=== PATIENT | male | born 1965 | race Caucasian/White ===

== ENCOUNTER 2016-12-30 22:27 | Emergency (ER) | payer BC, OTHER ==
[~2016-12-30] VITALS: Ht 175.3 cm; Wt 82.2 kg
[~2016-12-30 22:27] MED LIST: METO25TA3 PO
[2016-12-30 22:30] VITALS: TEMP 36.8; Ht 175.3 cm; Wt 82.2 kg
[2016-12-30] MEDS ORDERED: METO25TA3 PO (22:46)
[2016-12-30] MEDS ORDERED: FEXO1TAB46 PO (22:46)
[2016-12-30] MEDS ORDERED: MULT-506 PO (22:46)
[2016-12-30] MEDS ORDERED: OMEG10007 PO (22:46)
[2016-12-30] MEDS ORDERED: SODIUM CHLORIDE 0.9% 1000ML 1,000 ML IV ONE (23:00)
[2016-12-30 23:34] LABS: HEMATOCRIT 43.5 % (42-52); MEAN CELL VOLUME 89.1 fL (80-100); MEAN CORPUSCULAR HEMOGLOBIN 30.9 pg (25-34); MEAN CORPUSCULAR HGB CONC 34.7 g/dl (32-36); MEAN PLATELET VOLUME 9.3 fL (7.4-10.4); PLATELET COUNT 262 K/uL (130-400); RED BLOOD COUNT 4.88 M/uL (4.7-6.1); WHITE BLOOD COUNT 10.65 K/uL (4.8-10.8)
[2016-12-30 23:39] LABS: POINT OF CARE TROPONIN I < 0.030 ng/ml (0-0.045)
[2016-12-30 23:55] LABS: BUN/CREATININE RATIO 12.5 (10-20); CALCIUM 9.2 mg/dl (8.5-10.1); CREATININE 1.2 mg/dl (0.60-1.40); POTASSIUM 3.7 mmol/L (3.5-5.1)
[2016-12-31] MEDS ORDERED: OPTIRAY 320 IV PRN
[2016-12-31 00:06] LABS: ALB/GLOB RATIO 0.8 (0.9-2); THYROID STIMULATING HORMONE 3.51 uIu/ml (0.300-4.500)
[2016-12-31 00:25] LABS: LYME DISEASE AB IGG NEG (NEG)
[2016-12-31 00:26] LABS: LYME DISEASE AB IGM NEG (NEG)
[2016-12-31 00:36] LABS: BASOPHIL % 0.9 % (0-2); EOSINOPHIL % 3.6 %; LYMPH ABS # 2.61 K/uL (1.2-3.4); LYMPHOCYTE % 24.5 %; NEUTROPHILS % 29.1 %; VARIANT LYM ABS # 3.88 K/uL; VARIANT LYMPHOCYTE % 36.4 %
[2016-12-31 00:40] LABS: COMPLETE YES
[2016-12-31 01:15] VITALS: BP 138/92; PULSE 94; O2SAT 96
[2016-12-31] MEDS ORDERED: VNTHFA/IN INH (01:40)
[2016-12-31] MEDS ORDERED: HYDR5SYP11 PO (01:40)
[2016-12-31] MEDS ORDERED: DOXY100C PO (01:40)
[2016-12-31] MEDS ORDERED: HYCODAN 60ML BOTTLE HOMEPACK PO ONE (01:45)
--- NOTE | 2016-12-31 04:19 | EMERGENCY ROOM VISIT NOTE ---
History First contact with patient: 22:31 Chief Complaint: COUGH Stated Complaint: NECK/HEAD PAIN, PERSISTENT COUGH, VOMITTING, FEVER Nursing Triage Summary: patient reports cough for a month History of Present Illness The patient is a 51 year old male who presents to the Emergency Room with complaints of intermittent fever and persistent cough off-and-on for the past 3- 4 weeks. The patient considers himself usually healthy and does not take medication on a regular basis. He does not have a history of cardiopulmonary disease. The patient states that at times his cough will cause him anterior chest wall pain as well as posttussive emesis. The patient states that his fever improves with Advil and Tylenol at home. He was having worsening symptoms tonight, prompting his presentation. The patient does not report lightheadedness or dizziness. No dyspnea on exertion or abdominal pain. He has been eating, drinking, using the bathroom is normal. No weight loss or night sweats. He rates his overall discomfort 7/10. Review of Systems More than 10 systems were reviewed and otherwise negative with the exception of history of present illness. Past Medical/Surgical History Hypertension Family History Cancer FH: seizures Hypertension Social History Smoking Status: Never Smoker Marital Status: Housing Status: lives with family Occupation Status: employed Current/Historical Medications Scheduled Albuterol Hfa (Ventolin Hfa), 2 PUFFS INH QID Doxycycline Hyclate (Vibramycin), 100 MG PO BID Fexofenadine Hcl (Gretel), 180 MG PO DAILY Fish Oil ([place]-3), 1 CAP PO DAILY Metoprolol Succ (Toprol Xl) (Toprol-Xl), 25 MG PO DAILY Multivitamin (Multivitamin), 1 TAB PO DAILY Scheduled PRN Hydrocodone W/ Homatropine (Hycodan 5/1.5MG 5 Ml), 5-10 ML PO Q4H PRN for Cough Physical Exam Vital Signs Date Time Temp Pulse Resp B/P (MAP) Pulse Ox O2 Delivery O2 Flow Rate FiO2 12/31/16 01:15 94 18 138/92 96 Room Air 12/30/16 22:30 36.8 90 18 148/99 98 Room Air Pain Rating (0-10): 3.0 Physical Exam VITALS: Vitals are noted on the nurse's note and reviewed by myself. Vital signs stable. GENERAL: Well-developed, well-nourished, white male, who is in no acute distress and resting comfortably. Patient is cooperative with the examination. Dry cough is appreciated. HEAD: Normocephalic atraumatic. EARS: External ear normal. External auditory canals clear, tympanic membranes pearly denney without erythema or effusion bilaterally. EYES: Pupils equal round and reactive to light and accommodation. Conjunctivae without injection, sclerae without icterus. Extraocular movements intact. NOSE: Patent, turbinates without inflammation or discharge. MOUTH: Mucous membranes moist. Tonsils are not enlarged. Pharynx without erythema, blood, or exudate. Uvula midline. Airway patent. NECK: Supple without nuchal rigidity. No lymphadenopathy. No thyromegaly. Cervical spine is nontender. HEART: Regular rate and rhythm without murmurs gallops or rubs. LUNGS: Clear to auscultation bilaterally without wheezes, rales or rhonchi. No retractions or accessory muscle use. ABDOMEN: Positive normal bowel sounds x 4. Soft, nontender, without masses or organomegaly. No guarding or rebound tenderness. MUSCULOSKELETAL: No muscle atrophy, erythema, or edema noted. Full range of motion without joint tenderness in all extremities. NEURO: Patient was alert and oriented to person place and time. CN II through XII grossly intact. Medical Decision & Procedures ER Provider Diagnostic Interpretation: Preliminary Findings Only See Final Report For Complete Findings CTA CHEST: No evidence of PE. Lungs are clear. No pleural effusions. No adenopathy. Heart size is normal. Aorta is unremarkable. Laboratory Results 12/30/16 23:10 Red Blood Count 4.88, Mean Corpuscular Volume 89.1, Mean Corpuscular Hemoglobin 30.9, Mean Corpuscular Hemoglobin Concent 34.7, Mean Platelet Volume 9.3 12/30/16 23:10 Test 12/30/16 23:10 12/30/16 23:16 12/30/16 23:17 12/30/16 23:20 White Blood Count 10.65 K/uL (4.8-10.8) Red Blood Count 4.88 M/uL (4.7-6.1) Hemoglobin 15.1 g/dL (14.0-18.0) Hematocrit 43.5 % (42-52) Mean Corpuscular Volume 89.1 fL (80-100) Mean Corpuscular Hemoglobin 30.9 pg (25-34) Mean Corpuscular Hemoglobin Concent 34.7 g/dl (32-36) Platelet Count 262 K/uL (130-400) Mean Platelet Volume 9.3 fL (7.4-10.4) RDW Standard Deviation 45.4 fL (36.4-46.3) RDW Coefficient of Variation 13.9 % (11.5-14.5) Neutrophils % (Manual) 29.1 % Lymphocytes % (Manual) 24.5 % Variant Lymphocytes % (manual) 36.4 % Monocytes % (Manual) 5.5 % Eosinophils % (Manual) 3.6 % Basophils % (Manual) 0.9 % (0-2) Neutrophils # (Manual) 3.10 K/uL (1.4-6.5) Total Absolute Neutrophils 3.10 K/uL (1.4-6.5) Lymphocytes # (Manual) 2.61 K/uL (1.2-3.4) Absolute Variant Lymphocytes 3.88 K/uL Total Absolute Lymphocytes 6.49 K/uL (1.2-3.4) Monocytes # (Manual) 0.59 K/uL (0.11-0.59) Eosinophils # (Manual) 0.38 K/uL (0-0.5) Basophils # (Manual) 0.10 K/uL (0-0.2) Red Blood Cell Morphology Unremarkable Anion Gap 7.0 mmol/L (3-11) Est Creatinine Clear Calc Drug Dose 73.7 ml/min Estimated GFR () 81.2 Estimated GFR (Non- 70.1 BUN/Creatinine Ratio 12.5 (10-20) Calcium Level 9.2 mg/dl (8.5-10.1) Total Bilirubin 0.4 mg/dl (0.2-1) Aspartate Amino Transf (AST/SGOT) 64 U/L (15-37) Alanine Aminotransferase (ALT/SGPT) 96 U/L (12-78) Alkaline Phosphatase 208 U/L (45-117) Pro-B-Type Natriuretic Peptide 50 pg/ml (0-900) Total Protein 7.9 gm/dl (6.4-8.2) Albumin 3.4 gm/dl (3.4-5.0) Globulin 4.5 gm/dl (2.5-4.0) Albumin/Globulin Ratio 0.8 (0.9-2) Thyroid Stimulating Hormone (TSH) 3.510 uIu/ml (0.300-4.500) Lyme Disease IgG Antibody NEG (NEG) Lyme Disease IgM Antibody NEG (NEG) Monoscreen NEG (NEG) Bedside Lactic Acid Venous 0.77 mmol/L (0.90-1.70) Influenza Type A Antigen Neg for Influ A (NEG) Influenza Type B Antigen Neg for Influ B (NEG) Bedside D-Dimer > 450 ng/mlFEU (0-450) Bedside Troponin I < 0.030 ng/ml (0-0.045) Medications Administered Medications (Trade) Dose Ordered Sig/Binu Route Start Time Stop Time Status Last Admin Dose Admin Sodium Chloride 1,000 ml @ 999 mls/hr Q1H1M ONCE IV 12/30/16 23:00 12/31/16 00:00 DC 12/30/16 23:56 999 MLS/HR Hydrocodone Bit/ Homatropine Methylb (Hycodan Elix Homepack 5/1.5MG/ 5ML) 1 homepack UD ONCE PO 12/31/16 01:45 12/31/16 01:46 DC 12/31/16 01:50 1 HOMEPACK ECG Change: Normal sinus rhythm @81bpm Normal ECG When compared with ECG of 15-MAY-2008 09:39, No significant change was found ED Course Physical exam and history were performed. Nursing notes, EMR, and Medication List were personally reviewed. Patient appears to have vague history of fevers and chills with persistent cough for the past 3-4 weeks. 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 The patient is considered reliable and symptoms are somewhat concerning. IV access was established and labs were obtained. The patient was hydrated with normal saline. EKG was normal sinus rhythm at 81 bpm without evidence of ischemia or ectopy. X-ray was obtained. The patient was placed on the quality assurance monitor body. The patient was reevaluated multiple times with his stay. His blood work is as above and was reviewed. He does not have a significant elevated white blood cell count or gross anemia, bandemia, or significant electrolyte imbalance. Lipase was nondiagnostic. Troponin 1 is negative. His d-dimer was elevated, and CT angiogram was performed. CT angiogram did not show evidence of acute findings. Chest x-ray was also without acute findings. The patient's LFTs are slightly elevated of unknown etiology. He certainly does not have abdominal pain on examination, nor does he drink alcohol. Monospot was negative. Lyme was negative. On reevaluation the patient certainly does not appear toxic. The evaluation was discussed at length with the patient and the patient's . He does appear well and comfortable with discharge home. His symptoms certainly could be explained by an upper respiratory infection, and I will provide him a course of Doxycycline. Regarding his persistent cough and will give him a short course of Hycodin as well as an albuterol inhaler. They do recommend the patient follow with his PCP in the next few days for a recheck of his condition. He was certainly invited back to the emergency department with a new , worsening, or concerning symptoms. The chart was completed utilizing [employer] Speech Voice Recognition Software. Grammatical errors, random word insertions, pronoun errors, and incomplete sentences are an occasional consequence of this system due to software limitations, ambient noise, and hardware issues. Any formal questions or concerns about the content, text, or information contained within the body of this dictation should be directly addressed to the provider for clarification. . Medical Decision Differential diagnosis: Etiologies such as infections, reactive airway disease, pneumonia, pneumothorax , COPD, CHF, cardiac ischemia, pulmonary embolism, musculoskeletal, gastrointestinal, as well as others were entertained. Blood Pressure Screening Blood pressure disposition: Referred to PCP Impression Primary Impression: Upper respiratory infection Additional Impression: Cough Departure Information Dispostion Home / Self-Care Condition GOOD Prescriptions Albuterol Hfa (VENTOLIN HFA) 200 Puffs/26163 Mcg Aers 2 PUFFS INH QID for 5 Days, #1 INHALER Prov: Adilson Prieto PA-C 12/31/16 Hydrocodone W/ Homatropine (HYCODAN 5/1.5MG 5 ML) 1 Syp Syp 5-10 ML PO Q4H Y for Cough, #200 ML Prov: Adilson Prieto PA-C 12/31/16 Doxycycline Hyclate (VIBRAMYCIN) 100 Mg Cap 100 MG PO BID for 10 Days, #20 CAP Prov: Adilson Prieto PA-C 12/31/16 Referrals Edward Madera III, CRNP (PCP) Forms HOME CARE DOCUMENTATION FORM, Work Instructions, IMPORTANT VISIT INFORMATION Patient Instructions My [facility] Additional Instructions You were seen and evaluated today on an emergency basis only. This is not a substitute for, or an effort to provide, complete comprehensive medical care. It is not possible to recognize and treat all injuries or illnesses in a single emergency department visit. For this reason it is recommended that you followup with your primary care physician next week for recheck of your symptoms. For baseline pain relief you may alternate ibuprofen and acetaminophen every 4 hours for pain control. Take 600 mg ibuprofen (Advil) and then 4 hours later take 1000 mg acetaminophen (Tylenol). Do not take more than 3000 mg acetaminophen in a single day. Doxycycline twice a day for 10 days. Avoid exposure to the sun/UV light while on this medication or use frequent application of SPF 50 or higher due to increased sensitivity to UV rays and high risk for severe browne. Use your albuterol inhaler 2 puffs every 4-6 hours as needed for coughing. You may also use Hycodan 5 mL's every 4-6 hours as needed for cough. This is a narcotic. Do not drink or drive on this medication. You are welcome to return to the emergency department anytime with new, worsening, or concerning symptoms. Problem Qualifiers
--- NOTE | 2016-12-31 07:02 | DIAGNOSTIC IMAGING REPORT ---
CHEST 2 VIEWS ROUTINE CLINICAL HISTORY: Cough. Fever. COMPARISON STUDY: Chest radiograph May 15, 2008. FINDINGS: Lung volumes are normal. There is no pneumothorax or pleural effusion. No consolidation is identified. Pulmonary vascularity is normal. Cardiomediastinal silhouette is stable. IMPRESSION: No acute cardiopulmonary findings. Electronically signed by: Lyle Escobar M.D. 12/31/2016 7:01 AM Dictated Date/Time: 12/31/2016 7:00 AM
--- NOTE | 2016-12-31 07:42 | DIAGNOSTIC IMAGING REPORT ---
(CHEST FOR PE) ANGIO WITH CT DOSE: 332.10 mGy.cm HISTORY: Chest pain dyspnea TECHNIQUE: Multiaxial CT images of the chest were performed following the intravenous administration of contrast to evaluate the pulmonary arteries. Maximal intensity projection images were also obtained. A dose lowering technique was utilized adhering to the principles of ALARA. COMPARISON STUDY: None. FINDINGS: Thoracic aorta is normal in course and caliber. The right hemithoracic pulmonary vasculature enhances uniformly. Study is somewhat compromised due to respiratory artifact. Probable filling defect left perihilar region involving the lingular branch of the left upper lobe. No evidence for main or central pulmonary embolus. Lungs are generally clear. Slight interstitial prominence. IMPRESSION: Study is positive for a small pulmonary embolus proximal aspect left upper lobe/lingular pulmonary arterial artery . This is best seen transaxial image 72 of 110 and image 178 of 273. This correction was phoned to the emergency room The above report was generated using voice recognition software. It may contain grammatical, syntax or spelling errors. Electronically signed by: Daquan Lyons M.D. 12/31/2016 7:40 AM Dictated Date/Time: 12/31/2016 7:25 AM
[2016-12-31] MEDS ORDERED: RIVA1TAB7 PO (10:27)
== END 2016-12-31 01:50 | disposition home or self-care (01) ==
LOC: C.EDB 22:29 → C.EDC 12-31 01:50
DX: J06.9 Acute upper respiratory infection, unspecified (principal); R05 Cough; I10 Essential (primary) hypertension; Z82.0 Family history of epilepsy and other diseases of the nervous system; Z82.49 Family history of ischemic heart disease and other diseases of the circulatory system

== ENCOUNTER 2016-12-31 09:29 | Emergency (ER) | payer BC ==
[~2016-12-31] VITALS: Ht 175.3 cm; Wt 82.0 kg
[~2016-12-31 09:29] MED LIST changes: +DOXY100C PO; +FEXO1TAB46 PO; +HYDR5SYP11 PO; +MULT-506 PO; +OMEG10007 PO; +VNTHFA/IN INH
[2016-12-31 09:34] VITALS: TEMP 37.1; Ht 175.3 cm; Wt 82.0 kg
--- NOTE | 2016-12-31 09:57 | EMERGENCY ROOM VISIT NOTE ---
History Report prepared by Marilyn: Carri Nascimento Under the Supervision of: Dr. Jose Heller M.D. First contact with patient: 09:40 Chief Complaint: RESPIRATORY PROBLEMS Stated Complaint: CALLED BACK TO ER - FOUND PE Nursing Triage Summary: Pt seen here during the night, called and told to return for PE in left lung. Pt denies sob. "Chest pain from coughing." Denies pain in legs. Denies hx of PE. 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 Positive fevers, cough, and chest pain intermittently that worsens with coughing. Negative shortness of breath, and pain or swelling in legs. Patient is a non-smoker. He has been taking ibuprofen and Tylenol at home for his symptoms. The patient was evaluated in the ED yesterday for these symptoms. He had a chest CT, CXR, and blood work done. He was discharged home. The patient was called back to the ED this morning after the radiologist read his CT and found a small PE in the left lung. He denies any personal or family history of blood clots. The patient rates his current pain as a 3/10 in severity. 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 A total of ten systems were reviewed and were otherwise negative. Past Medical & Surgical Surgical Problems: (1) Hx of tonsillectomy Family History Cancer FH: seizures Hypertension Social History Smoking Status: Never Smoker Marital Status: Housing Status: lives with family Occupation Status: employed Current/Historical Medications Scheduled Albuterol Hfa (Ventolin Hfa), 2 PUFFS INH QID Doxycycline Hyclate (Vibramycin), 100 MG PO BID Fexofenadine Hcl (Gretel), 180 MG PO DAILY Fish Oil ([place]-3), 1 CAP PO DAILY Metoprolol Succ (Toprol Xl) (Toprol-Xl), 25 MG PO DAILY Multivitamin (Multivitamin), 1 TAB PO DAILY Rivaroxaban (Xarelto Starter Pack 15 & 20 mg), 1 BOX PO QD Scheduled PRN Hydrocodone W/ Homatropine (Hycodan 5/1.5MG 5 Ml), 5-10 ML PO Q4H PRN for Cough Allergies Coded Allergies: No Known Allergies (Verified , 12/30/16) Physical Exam Vital Signs Date Time Temp Pulse Resp B/P (MAP) Pulse Ox O2 Delivery O2 Flow Rate FiO2 12/31/16 10:15 82 18 122/76 98 Room Air 12/31/16 09:34 96 Room Air 12/31/16 09:34 37.1 90 18 113/76 94 Room Air Physical Exam GENERAL: Awake, alert, well-appearing, NAD HENT: Normocephalic, atraumatic. EYES: Normal conjunctiva. Sclera non-icteric. NECK: Supple. No nuchal rigidity. FROM. RESPIRATORY: CTAB, no rhonchi, wheezing, crackles CARDIAC: RRR, no MRG ABDOMEN: Soft, NTND, BS+ MSK: No chest wall TTP, no LE edema NEURO: GCS 15, CN 2-12 intact, moves all 4s on command SKIN: No rash or jaundice noted. Medical Decision & Procedures ECG Indication: other (PE) Rate (beats per minute): 75 Rhythm: normal sinus Findings: T-wave inversion (lead 3), other (normal TN, QRS, QTC; no other contiguous changes; no other STS or TWI) ED Course 0940: The patient was evaluated in room A9B. A complete history and physical exam was performed. 1025: I reassessed the patient at this time. He is feeling better and resting comfortably. I discussed the results and treatment plan with the patient and his . I answered all pertaining questions that they had. They expressed understanding and verbalized agreement. The patient will be discharged home. Medical Decision Differential diagnoses includes PE, arrhythmia, pleurisy, costochondritis, bronchitis. 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 He has a PESI of 60 - low risk. A repeat EKG was completed which did not show any tachycardia. He did have an isolated T-wave inversion in lead 3 but no continuous changes. Patient received a walk test around the department and his vital signs were still stable. No tachycardia or hypoxia or tachypnea. I did consider other possible causes of his pain that given the CT read of PE is less likely. Patient was feeling well. I gave the patient specific return, follow-up, and discharge instructions. Patient was treated receives a relatives and outpatient follow- up with his PCP. Patient agreed with plan of care was discharged home. Medication Reconcilliation Current Medication List: was personally reviewed by me Blood Pressure Screening Patient's blood pressure: Normal blood pressure Impression Primary Impression: Pulmonary embolism Additional Impression: Pleuritic chest pain Scribe Attestation The scribe's documentation has been prepared under my direction and personally reviewed by me in its entirety. I confirm that the note above accurately reflects all work, treatment, procedures, and medical decision making performed by me. Departure Information Dispostion Home / Self-Care Prescriptions Rivaroxaban (Xarelto Starter Pack 15 & 20 mg) 1 Tab Tab 1 BOX PO QD for pulmonary embolism, #30 BOX 0 Refills Prov: Jose Heller M.D. 12/31/16 Referrals Edward Madera III, CRNP (PCP) Forms HOME CARE DOCUMENTATION FORM, IMPORTANT VISIT INFORMATION, WORK / SCHOOL INSTRUCTIONS Patient Instructions Embolism Pulmonary Dc, My [facility], Rivaroxaban oral tablets Additional Instructions Please follow up with her primary care physician. Please return to the emergency department if worsening or recurrent symptoms. WARNINGS AND PRECAUTIONS Increased Risk of Thrombotic Events After Premature Discontinuation: Premature discontinuation of any oral anticoagulant, including XARELTO, in the absence of adequate alternative anticoagulation increases the risk of thrombotic events. An increased rate of stroke was observed during the transition from XARELTO to warfarin in clinical trials in atrial fibrillation patients. If XARELTO is discontinued for a reason other than pathological bleeding or completion of a course of therapy, consider coverage with another anticoagulant.Risk of Bleeding: XARELTO increases the risk of bleeding and can cause serious or fatal bleeding. Promptly evaluate any signs or symptoms of blood loss and consider the need for blood replacement. Discontinue XARELTO in patients with active pathological hemorrhage. A specific antidote for rivaroxaban is not available. Because of high plasma protein binding, rivaroxaban is not expected to be dialyzable. Concomitant use of other drugs that impair hemostasis increases the risk of bleeding. These include aspirin, P2Y12 platelet inhibitors, other antithrombotic agents, fibrinolytic therapy, NSAIDs, selective serotonin reuptake inhibitors (SSRIs), and serotonin norepinephrine reuptake inhibitors (SNRIs). Work Instructions Return To Work: 2 days Specific Date: 01/02/17 Problem Qualifiers Primary Impression: Pulmonary embolism Pulmonary embolism type: other Chronicity: acute Acute cor pulmonale presence: without acute cor pulmonale Qualified Codes: I26.99 - Other pulmonary embolism without acute cor pulmonale
[2016-12-31 10:15] VITALS: BP 122/76; PULSE 82; O2SAT 98
[2016-12-31] MEDS ORDERED: RIVA1TAB7 PO (10:27)
== END 2016-12-31 10:40 | disposition home or self-care (01) ==
LOC: C.EDB 09:30 → C.EDA 10:40
DX: I26.99 Other pulmonary embolism without acute cor pulmonale (principal); Z80.9 Family history of malignant neoplasm, unspecified; Z82.0 Family history of epilepsy and other diseases of the nervous system; Z82.49 Family history of ischemic heart disease and other diseases of the circulatory system; Z79.899 Other long term (current) drug therapy

== ENCOUNTER → 2017-01-08 | Outpatient (CLI) | payer BC ==
[~2017-01-08] MED LIST changes: +RIVA1TAB7 PO; -VNTHFA/IN INH
--- NOTE | 2017-01-08 14:11 | DIAGNOSTIC IMAGING REPORT ---
ULTRASOUND BILATERAL LOWER EXTREMITY VENOUS CLINICAL HISTORY: Pulmonary embolus. COMPARISON STUDY: Left lower extremity venous ultrasound dated 03/07/2015. TECHNIQUE: Real-time, grayscale, and color Doppler sonography of the deep veins of the right and left lower extremity was performed from the inguinal crease to the calf. Compression and augmentation were utilized. FINDINGS: There is no sonographic evidence of deep venous thrombosis identified in the right or left lower extremity. The common femoral, superficial femoral, and popliteal veins are patent and normally compressible bilaterally. The greater saphenous vein and the profunda femoris vein at the junction with the common femoral vein are clear in both legs. The visualized calf veins are patent bilaterally. IMPRESSION: There is no sonographic evidence of deep venous thrombosis identified in the right or left lower extremity. Electronically signed by: Christopher Duran M.D. 01/08/2017 2:09 PM Dictated Date/Time: 01/08/2017 2:08 PM
== END | disposition home or self-care (01) ==
LOC: C.ULTR 13:37
PROVIDERS: ATTEND Nurse Practitioner Family
DX: I26.99 Other pulmonary embolism without acute cor pulmonale (principal)

== ENCOUNTER 2017-05-22 00:26 | Emergency (ER) | payer BC ==
[~2017-05-22] VITALS: Ht 172.7 cm; Wt 83.6 kg
[~2017-05-22 00:26] MED LIST changes: -DOXY100C PO; -HYDR5SYP11 PO
[2017-05-22 00:30] VITALS: TEMP 36.7; Ht 172.7 cm; Wt 83.6 kg
[2017-05-22] MEDS ORDERED: ONDANSETRON INJ 2 MG/ML 2 ML VIAL IV STA (00:33)
[2017-05-22] MEDS ORDERED: SODIUM CHLORIDE 0.9% 1000ML 1,000 ML IV STA (00:33)
--- NOTE | 2017-05-22 00:42 | EMERGENCY ROOM VISIT NOTE ---
History Report prepared by Marilyn: Neeru Garcia Under the Supervision of: Dr. John Estrada D.O. First contact with patient: 00:33 Chief Complaint: FLANK PAIN Stated Complaint: PAIN IN SIDE,PINK URINE History of Present Illness The patient is a 52 year old male who presents to the Emergency Room with complaints of worsening right flank pain starting last night. The patient states that it became worse tonight. He states that he has not taken anything for his pain. He notes that movement makes it worse and sitting still makes it better. The patient complains of fatigue from difficulty sleeping last night. He notes that his urine is slightly pink. The patient denies fever, vomiting, nausea, and a history of kidney stones. He notes that he had a PE in December. Source of History: patient Onset: last night Position: other (right flank) Timing: worsening Modifying Factors (Worsening): movement Modifying Factors (Relieving): rest Associated Symptoms: + fatigue, No fevers, No nausea, No vomiting Review of Systems See HPI for pertinent positives & negatives. A total of 10 systems reviewed and were otherwise negative. Past Medical & Surgical Surgical Problems: (1) Hx of tonsillectomy Family History Cancer FH: seizures Hypertension Social History Smoking Status: Never Smoker Marital Status: Housing Status: lives with family Occupation Status: employed Current/Historical Medications Scheduled Fexofenadine Hcl (Gretel), 180 MG PO DAILY Fish Oil ([place]-3), 1 CAP PO DAILY Metoprolol Succ (Toprol Xl) (Toprol-Xl), 25 MG PO DAILY Multivitamin (Multivitamin), 1 TAB PO DAILY Rivaroxaban (Xarelto Starter Pack 15 & 20 mg), 1 BOX PO QD Allergies Coded Allergies: No Known Allergies (Verified , 12/30/16) Physical Exam Vital Signs Date Time Temp Pulse Resp B/P (MAP) Pulse Ox O2 Delivery O2 Flow Rate FiO2 05/22/17 01:27 55 16 156/96 98 Room Air 05/22/17 00:30 36.7 64 18 191/97 98 Room Air Physical Exam CONSTITUTIONAL/VITAL SIGNS: Reviewed / noted above. GENERAL: Non-toxic in appearance. INTEGUMENTARY: Warm, dry, and [place]. HEAD: Normocephalic. EYES: without scleral icterus or trauma. ENT/OROPHARYNX: clear and moist. LYMPHADENOPATHY/NECK: Is supple without lymphadenopathy or meningismus. RESPIRATORY: Lungs clear and equal. CARDIOVASCULAR: Regular rate and rhythm. GI/ABDOMEN: Soft and nontender. No organomegaly or pulsatile mass. No rebound or guarding. Normal bowel sounds. EXTREMITIES: Warm and well perfused. BACK: No CVA tenderness. NEUROLOGICAL: Intact without focal deficits. PSYCHIATRIC: normal affect. MUSCULOSKELETAL: Normally developed with good muscle tone. Medical Decision & Procedures ER Provider Diagnostic Interpretation: Radiology results as stated below per my review and radiologist interpretation: CT ABDOMEN & PELVIS Without Contrast: No evidence of acute abnormality in the abdomen or pelvis on noncontrast CT to account for symptoms. No hydronephrosis or ureteral calculus to account for right flank pain. Bladder is underdistended which limits evaluation. Recommend correlation with urinalysis. Mild symmetric perinephric stranding, nonspecific. Unremarkable gallbladder. Normal appendix. Radiologist: Glenys Salas MD Study ready at 00:54 and initial results transmitted at 01:33. Laboratory Results 05/22/17 00:40 Red Blood Count 4.76, Mean Corpuscular Volume 90.3, Mean Corpuscular Hemoglobin 31.3, Mean Corpuscular Hemoglobin Concent 34.7, Mean Platelet Volume 9.1 05/22/17 00:40 Test 05/22/17 00:31 05/22/17 00:40 Urine Color YELLOW Urine Appearance CLEAR (CLEAR) Urine pH 6.0 (4.5-7.5) Urine Specific [place] 1.011 (1.000-1.030) Urine Protein NEG (NEG) Urine Glucose (UA) NEG (NEG) Urine Ketones NEG (NEG) Urine Occult Blood 3+ (NEG) Urine Nitrite NEG (NEG) Urine Bilirubin NEG (NEG) Urine Urobilinogen NEG (NEG) Urine Leukocyte Esterase NEG (NEG) Urine WBC (Auto) 1-5 /hpf (0-5) Urine RBC (Auto) >30 /hpf (0-4) Urine Hyaline Casts (Auto) 0 /lpf (0-5) Urine Epithelial Cells (Auto) 0-5 /lpf (0-5) Urine Bacteria (Auto) NEG (NEG) White Blood Count 11.35 K/uL (4.8-10.8) Red Blood Count 4.76 M/uL (4.7-6.1) Hemoglobin 14.9 g/dL (14.0-18.0) Hematocrit 43.0 % (42-52) Mean Corpuscular Volume 90.3 fL (80-100) Mean Corpuscular Hemoglobin 31.3 pg (25-34) Mean Corpuscular Hemoglobin Concent 34.7 g/dl (32-36) Platelet Count 286 K/uL (130-400) Mean Platelet Volume 9.1 fL (7.4-10.4) RDW Standard Deviation 45.2 fL (36.4-46.3) RDW Coefficient of Variation 13.7 % (11.5-14.5) Anion Gap 6.0 mmol/L (3-11) Est Creatinine Clear Calc Drug Dose 80.7 ml/min Estimated GFR () 85.8 Estimated GFR (Non- 74.1 BUN/Creatinine Ratio 18.5 (10-20) Calcium Level 8.9 mg/dl (8.5-10.1) Total Bilirubin 0.3 mg/dl (0.2-1) Direct Bilirubin < 0.1 mg/dl (0-0.2) Aspartate Amino Transf (AST/SGOT) 48 U/L (15-37) Alanine Aminotransferase (ALT/SGPT) 94 U/L (12-78) Alkaline Phosphatase 124 U/L (45-117) Total Protein 8.1 gm/dl (6.4-8.2) Albumin 3.8 gm/dl (3.4-5.0) Lipase 215 U/L (73-393) Laboratory results as stated above per my review. Medications Administered Medications (Trade) Dose Ordered Sig/Binu Route Start Time Stop Time Status Last Admin Dose Admin Sodium Chloride 1,000 ml @ 999 mls/hr Q1H1M STAT IV 05/22/17 00:33 05/22/17 01:33 DC 05/22/17 00:41 999 MLS/HR Ondansetron HCl (Zofran Inj) 4 mg NOW STAT IV 05/22/17 00:33 05/22/17 00:34 DC 05/22/17 00:41 4 MG ED Course 0033: Ordered Zofran Inj 4 mg IV, NSS 1000 ml @ 999 mls/hr IV. 0034: Previous medical records were reviewed. The patient was evaluated in room A4B. A complete history and physical examination was performed. 0136: On reevaluation, the patient is resting comfortably. I discussed the results and findings with the patient. He verbalized agreement of the treatment plan. The patient was discharged home. Medical Decision Differential considered: pancreatitis, hepatitis, or acute cholecystitis, AAA, UTI, pyelonephritis, kidney stones, appendicitis, diverticulitis, shingles, bowel obstruction mesenteric ischemia, intussusception,hernia, testicular torsion. This is a 52-year-old male who presents to the ED with a chief complaint of right sided flank pain. The patient states that his symptoms started yesterday. It seemed a bit better today but then returned tonight. He denies any fevers, vomiting, chest pains or shortness of breath. Did report some pink discoloration of the urine earlier today. He is on oral anticoagulation for history of PE. The patient's physical exam did not reveal any CVA tenderness. There is no tenderness to palpation of the musculature. Abdomen was soft and nontender. The patient is an no significant distress at this time. CBC shows a mild white blood cell count elevation. The BUN is slightly elevated. AST and ALTs are slightly elevated. Urine reveals some blood. No obvious infection. CT scan of the abdomen and pelvis did not show acute abnormality. The patient was told results the test. He may have passed a small stone. He did have some hematuria. He is felt to be stable for discharge and outpatient follow-up. Medication Reconcilliation Current Medication List: was personally reviewed by me Blood Pressure Screening Patient's blood pressure: Elevated blood pressure Blood pressure disposition: Elevated BP felt to be situational Impression Primary Impression: Right flank pain Additional Impression: Hematuria Scribe Attestation The scribe's documentation has been prepared under my direction and personally reviewed by me in its entirety. I confirm that the note above accurately reflects all work, treatment, procedures, and medical decision making performed by me. Departure Information Dispostion Home / Self-Care Referrals Edward Madera III, CRNP (PCP) Forms HOME CARE DOCUMENTATION FORM, IMPORTANT VISIT INFORMATION Patient Instructions My [facility] Additional Instructions Follow-up with your doctor for further care and evaluation in 1-2 days. Return to the emergency department for worsening or new symptoms or any concerns. You have been examined and treated today on an emergency basis only. This is not a substitute for, or an effort to provide, complete comprehensive medical care. It is impossible to recognize and treat all injuries or illnesses in a single emergency department visit. It is therefore important that you follow up closely with your doctor. Call as soon as possible for an appointment. Problem Qualifiers
[2017-05-22 00:50] LABS: HEMOGLOBIN 14.9 g/dL (14.0-18.0); MEAN CELL VOLUME 90.3 fL (80-100); MEAN CORPUSCULAR HEMOGLOBIN 31.3 pg (25-34); MEAN CORPUSCULAR HGB CONC 34.7 g/dl (32-36); MEAN PLATELET VOLUME 9.1 fL (7.4-10.4); PLATELET COUNT 286 K/uL (130-400); RED CELL DISTRIBUTION WIDTH CV 13.7 % (11.5-14.5); RED CELL DISTRIBUTION WIDTH SD 45.2 fL (36.4-46.3); WHITE BLOOD COUNT 11.35 K/uL (4.8-10.8)
[2017-05-22 01:10] LABS: ALBUMIN 3.8 gm/dl (3.4-5.0); ALT/SGPT 94 U/L (12-78); AST/SGOT 48 U/L (15-37); BLOOD UREA NITROGEN 21 mg/dl (7-18); CALCIUM 8.9 mg/dl (8.5-10.1); CARBON DIOXIDE 27 mmol/L (21-32); CREATININE 1.14 mg/dl (0.60-1.40); GLUCOSE 85 mg/dl (70-99); LIPASE 215 U/L (73-393); POTASSIUM 3.5 mmol/L (3.5-5.1); SODIUM 137 mmol/L (136-145)
[2017-05-22 01:13] LABS: ALKALINE PHOSPHATASE 124 U/L (45-117); TOTAL PROTEIN 8.1 gm/dl (6.4-8.2)
[2017-05-22 01:27] VITALS: BP 156/96; PULSE 55; O2SAT 98
--- NOTE | 2017-05-22 07:32 | DIAGNOSTIC IMAGING REPORT ---
CT SCAN OF THE ABDOMEN AND PELVIS WITHOUT IV CONTRAST CLINICAL HISTORY: Right flank pain. Hematuria. COMPARISON STUDY: No priors. TECHNIQUE: CT scan of the abdomen and pelvis is performed from the lung bases to the proximal femora. Images are reviewed in the axial, sagittal, and coronal planes. IV contrast was not administered for this examination. A dose lowering technique was utilized adhering to the principles of ALARA. CT DOSE: 796.25 mGy.cm FINDINGS: Lung bases: The heart is normal in size and without pericardial effusion. The lung bases are clear. There is a small hiatal hernia. Liver: The unenhanced liver is normal in size, contour, and attenuation. There is no intrahepatic biliary ductal dilatation. Gallbladder: Contracted. Spleen: Normal in size and attenuation. Pancreas: The unenhanced pancreas is grossly unremarkable. Adrenal glands: Unremarkable. Kidneys: The unenhanced kidneys are normal in size and without hydronephrosis. There are no renal calculi identified. An 11 mm cyst is noted in the interpolar left kidney. Abdominal vasculature: The abdominal aorta is normal in course and caliber. Bowel: The small bowel and colon are normal in course and caliber. The appendix is well-visualized and normal. Peritoneum: There is no intraperitoneal free air or abdominal ascites. There is a fat-containing umbilical hernia. Lymphadenopathy: None. Pelvic viscera: The bladder is decompressed and grossly unremarkable. The prostate and seminal vesicles are normal as imaged. Skeletal structures: No lytic or blastic lesions are seen. IMPRESSION: There are no acute infectious or inflammatory findings in the abdomen or pelvis. Electronically signed by: Christopher Duran M.D. 05/22/2017 7:30 AM Dictated Date/Time: 05/22/2017 7:27 AM
== END 2017-05-22 00:42 | disposition home or self-care (01) ==
LOC: C.EDB 00:27 → C.EDA 00:42
DX: R10.9 Unspecified abdominal pain (principal); R31.9 Hematuria, unspecified; Z82.0 Family history of epilepsy and other diseases of the nervous system; Z82.49 Family history of ischemic heart disease and other diseases of the circulatory system

== ENCOUNTER 2017-07-27 05:54 | Observation (INO) | payer OTHER ==
[~2017-07-27] VITALS: Ht 170.2 cm; Wt 81.9 kg
[2017-07-27] MEDS ORDERED: XRL20 PO (06:09)
[2017-07-27 06:32] LABS: HEMATOCRIT 42.2 % (42-52); HEMOGLOBIN 14.8 g/dL (14.0-18.0); MEAN CORPUSCULAR HEMOGLOBIN 31.6 pg (25-34); MEAN CORPUSCULAR HGB CONC 35.1 g/dl (32-36); MEAN PLATELET VOLUME 9.2 fL (7.4-10.4); PLATELET COUNT 309 K/uL (130-400); RED CELL DISTRIBUTION WIDTH CV 13.5 % (11.5-14.5); RED CELL DISTRIBUTION WIDTH SD 44.1 fL (36.4-46.3); WHITE BLOOD COUNT 9.91 K/uL (4.8-10.8)
--- NOTE | 2017-07-27 06:36 | DIAGNOSTIC IMAGING REPORT ---
HEAD WITHOUT CONTRAST (CT) CLINICAL HISTORY: 52 years-old Male with right sided numbness. Acute right-sided numbness TECHNIQUE: Multiple axial CT images of the head were obtained without contrast. A dose lowering technique was utilized adhering to the principles of ALARA. CT DOSE: 537.48 mGy.cm COMPARISON: None. FINDINGS: No acute intracranial hemorrhage, midline shift, intracranial mass, hydrocephalus, territorial ischemia or abnormal extra-axial collection. There is increased attenuation in the region of the right carotid terminus seen on images 6 and 7 of series 2 The calvarium is intact. The paranasal sinuses, mastoid air cells, and middle ear cavities are clear. IMPRESSION: 1. No acute intracranial hemorrhage, midline shift or territorial infarction. 2. Asymmetrically increased attenuation of the right carotid terminus suggests atherosclerotic plaquing or possible thrombus. Correlate with clinical symptomatology and possibly CTA of the head to further evaluate. The above report was generated using voice recognition software. It may contain grammatical, syntax or spelling errors. Electronically signed by: Antione Wren M.D. 07/27/2017 6:35 AM Dictated Date/Time: 07/27/2017 6:29 AM
[2017-07-27] MEDS ORDERED: SODIUM CHLORIDE 0.9% 1000ML 1,000 ML IV STA (06:42)
--- NOTE | 2017-07-27 06:46 | EMERGENCY ROOM VISIT NOTE ---
History Report prepared by Marilyn: Karthikeyan Kwon Under the Supervision of: Dr. Diana Zimmer M.D. First contact with patient: 06:37 Chief Complaint: NEURO SYMPTOMS Stated Complaint: NUMBNESS ON RIGHT SIDE Nursing Triage Summary: Pt complains of numbness to right arm and leg. Pt noticed it at 4 am. Pt has history of PE and was taken off Zarelto last week. History of Present Illness The patient is a 52 year old male who presents to the Emergency Room with complaints of constant right arm and right leg numbness that feels like it is asleep. The patient notes that he woke up to go to the bathroom, and he noticed the numbness. The patient states that he does not have any pain, and he is able to move his extremities without difficulty. He denies any facial numbness, difficulty speaking, headache, nausea, chest pain, shortness of breath, leg swelling, and leg cramping. The patient states that he had a PE in December, and he just stopped taking Xarelto a week ago. He denies any past medical history of heart attacks, family history of heart disease and stroke, history of smoking , and history of diabetes. Source of History: patient Onset: 0 Position: arm (right), leg (right) Quality: numbness Timing: constant Associated Symptoms: No headache, No chest pain, No SOB, No nausea Review of Systems See HPI for pertinent positives & negatives. A total of 10 systems reviewed and were otherwise negative. Past Medical & Surgical Medical Problems: (1) Numbness on right side Surgical Problems: (1) Hx of tonsillectomy Family History Cancer FH: seizures Hypertension Social History Smoking Status: Never Smoker Marital Status: Housing Status: lives with family Occupation Status: employed Current/Historical Medications Scheduled Fish Oil ([place]-3), 1 CAP PO DAILY Metoprolol Succ (Toprol Xl) (Toprol-Xl), 25 MG PO DAILY Multivitamin (Multivitamin), 1 TAB PO DAILY Allergies Coded Allergies: No Known Allergies (Verified , 07/27/17) Physical Exam Vital Signs Date Time Temp Pulse Resp B/P (MAP) Pulse Ox O2 Delivery O2 Flow Rate FiO2 07/27/17 10:15 74 18 144/98 98 Room Air 07/27/17 09:15 69 18 133/87 98 Room Air 07/27/17 07:56 74 18 140/82 98 Room Air 07/27/17 07:04 81 18 145/93 98 Room Air 07/27/17 06:36 73 07/27/17 06:31 85 16 141/95 98 Room Air 07/27/17 06:10 98 Room Air 07/27/17 05:58 36.4 80 18 163/90 99 Room Air Physical Exam Vital signs reviewed. General: Well-appearing male, in no significant distress. HEENT: No scleral icterus, PERRLA, neck supple. Atraumatic. Cardiovascular: Regular rate and rhythm, no extra sounds. Pulmonary: Clear to auscultation bilaterally, normal work of breathing. Abdomen: Soft, nontender, nondistended, positive bowel sounds. Musculoskeletal: Atraumatic, no peripheral edema. Neurologic: Patient awake alert and oriented x 3, full strength in all 4 extremities. Cranial nerves 2 through 12 grossly intact. Skin: Warm, dry, no rash Medical Decision & Procedures ER Provider Diagnostic Interpretation: Radiology results as stated below per my review and radiologist interpretation: HEAD WITHOUT CONTRAST (CT) CLINICAL HISTORY: 52 years-old Male with right sided numbness. Acute right-sided numbness TECHNIQUE: Multiple axial CT images of the head were obtained without contrast. A dose lowering technique was utilized adhering to the principles of ALARA. CT DOSE: 537.48 mGy.cm COMPARISON: None. FINDINGS: No acute intracranial hemorrhage, midline shift, intracranial mass, hydrocephalus, territorial ischemia or abnormal extra-axial collection. There is increased attenuation in the region of the right carotid terminus seen on images 6 and 7 of series 2 The calvarium is intact. The paranasal sinuses, mastoid air cells, and middle ear cavities are clear. IMPRESSION: 1. No acute intracranial hemorrhage, midline shift or territorial infarction. 2. Asymmetrically increased attenuation of the right carotid terminus suggests atherosclerotic plaquing or possible thrombus. Correlate with clinical symptomatology and possibly CTA of the head to further evaluate. The above report was generated using voice recognition software. It may contain grammatical, syntax or spelling errors. Electronically signed by: Antione Wren M.D. 07/27/2017 6:35 AM Dictated Date/Time: 07/27/2017 6:29 AM HEAD ANGIO WITH CONTRAST, NECK ANGIO WITH CONTRAST CLINICAL HISTORY: 52 years-old Male presenting with right carotid plaque versus thrombus. TECHNIQUE: Multidetector CT angiography of the head and neck was performed after the administration of intravenous contrast. 3-D volumetric and/or maximum intensity projection (MIP) images were subsequently reconstructed for review. IV contrast: 92 mL of Optiray 320. A dose lowering technique was used consistent with the principles of ALARA (as low as reasonably achievable). Stenosis measurements were based on NASCET-like criteria. COMPARISON: Noncontrast CT head performed on 07/27/2017 at 6:[address] DOSE (mGy.cm): The estimated cumulative dose is 638.62 mGy.cm. FINDINGS: Food Quality Tester topogram: Unremarkable. CTA head: Evaluation slightly degraded by timing of the contrast bolus with opacification of the cerebral veins. Anterior circulation demonstrates patent intracranial portions of the internal carotid arteries. Anterior and middle cerebral arteries patent. Anterior commuting artery patent. Posterior circulation demonstrates codominant vertebral arteries. Patent posterior inferior cerebellar arteries. Basilar, anterior inferior cerebellar, superior cerebellar, and posterior cerebral arteries patent. Bilateral posterior communicating arteries patent. No evidence of aneurysm, focal vessel occlusion, intraluminal thrombus, or significant stenosis of the intracranial arteries. Dural venous sinuses patent. CTA neck: Three-vessel aortic arch with patent origins. Bilateral common and internal carotid arteries patent. Origins and courses of the codominant vertebral arteries patent. No evidence of dissection, thrombus, significant stenosis, or focal vessel occlusion. Opacification of the right max or sinus and extensive mucosal thickening in the left max or sinus. Otherwise soft tissues of the neck within normal limits allowing for the phase of contrast. Lung apices clear. Degenerative changes of the spine. IMPRESSION: 1. The abnormality detected on CT had does not have a correlate on CTA and may have represented volume averaging of the clinoid process. No evidence of aneurysm, focal vessel occlusion, intraluminal thrombus, or significant stenosis of the intracranial arteries. 2. No evidence of dissection, focal vessel occlusion, or stenosis in the cervical arteries. Electronically signed by: Trace Cee M.D. 07/27/2017 7:33 AM Dictated Date/Time: 07/27/2017 7:20 AM HEAD ANGIO WITH CONTRAST, NECK ANGIO WITH CONTRAST CLINICAL HISTORY: 52 years-old Male presenting with right carotid plaque versus thrombus. TECHNIQUE: Multidetector CT angiography of the head and neck was performed after the administration of intravenous contrast. 3-D volumetric and/or maximum intensity projection (MIP) images were subsequently reconstructed for review. IV contrast: 92 mL of Optiray 320. A dose lowering technique was used consistent with the principles of ALARA (as low as reasonably achievable). Stenosis measurements were based on NASCET-like criteria. COMPARISON: Noncontrast CT head performed on 07/27/2017 at 6:[address] DOSE (mGy.cm): The estimated cumulative dose is 638.62 mGy.cm. FINDINGS: Food Quality Tester topogram: Unremarkable. CTA head: Evaluation slightly degraded by timing of the contrast bolus with opacification of the cerebral veins. Anterior circulation demonstrates patent intracranial portions of the internal carotid arteries. Anterior and middle cerebral arteries patent. Anterior commuting artery patent. Posterior circulation demonstrates codominant vertebral arteries. Patent posterior inferior cerebellar arteries. Basilar, anterior inferior cerebellar, superior cerebellar, and posterior cerebral arteries patent. Bilateral posterior communicating arteries patent. No evidence of aneurysm, focal vessel occlusion, intraluminal thrombus, or significant stenosis of the intracranial arteries. Dural venous sinuses patent. CTA neck: Three-vessel aortic arch with patent origins. Bilateral common and internal carotid arteries patent. Origins and courses of the codominant vertebral arteries patent. No evidence of dissection, thrombus, significant stenosis, or focal vessel occlusion. Opacification of the right max or sinus and extensive mucosal thickening in the left max or sinus. Otherwise soft tissues of the neck within normal limits allowing for the phase of contrast. Lung apices clear. Degenerative changes of the spine. IMPRESSION: 1. The abnormality detected on CT had does not have a correlate on CTA and may have represented volume averaging of the clinoid process. No evidence of aneurysm, focal vessel occlusion, intraluminal thrombus, or significant stenosis of the intracranial arteries. 2. No evidence of dissection, focal vessel occlusion, or stenosis in the cervical arteries. Electronically signed by: Trace Cee M.D. 07/27/2017 7:33 AM Dictated Date/Time: 07/27/2017 7:20 AM Laboratory Results Test 07/27/17 06:15 Neutrophils % (Manual) 33.0 % Lymphocytes % (Manual) 25.0 % Monocytes % (Manual) 4.0 % Eosinophils % (Manual) 2.0 % Basophils % (Manual) 2.0 % (0-2) Neutrophils # (Manual) 3.27 K/uL (1.4-6.5) Total Absolute Neutrophils 3.27 K/uL (1.4-6.5) Lymphocytes # (Manual) 2.48 K/uL (1.2-3.4) Total Absolute Lymphocytes 5.85 K/uL (1.2-3.4) Monocytes # (Manual) 0.40 K/uL (0.11-0.59) Eosinophils # (Manual) 0.20 K/uL (0-0.5) Basophils # (Manual) 0.20 K/uL (0-0.2) Percent Large Granular Lymphocytes 34.0 % Absolute Large Granular Lymphocytes 3.37 K/uL Red Blood Cell Morphology Unremarkable Prothrombin Time 10.3 SECONDS (9.0-12.0) Prothromb Time International Ratio 1.0 (0.9-1.1) Estimated Average Glucose 105 mg/dl Hemoglobin A1c 5.3 % (4.5-5.6) Magnesium Level 2.2 mg/dl (1.8-2.4) Total Bilirubin 0.3 mg/dl (0.2-1) Alkaline Phosphatase 109 U/L (45-117) Troponin I < 0.015 ng/ml (0-0.045) Total Protein 8.0 gm/dl (6.4-8.2) Albumin 3.6 gm/dl (3.4-5.0) Globulin 4.4 gm/dl (2.5-4.0) Albumin/Globulin Ratio 0.8 (0.9-2) Thyroid Stimulating Hormone (TSH) 4.020 uIu/ml (0.300-4.500) Laboratory results per my review. Medications Administered Medications (Trade) Dose Ordered Sig/Binu Route Start Time Stop Time Status Last Admin Dose Admin Sodium Chloride 1,000 ml @ 150 mls/hr Q6H40M STAT IV 07/27/17 06:42 07/27/17 13:21 DC 07/27/17 07:11 150 MLS/HR Atorvastatin Calcium (Lipitor Tab) 40 mg 1115 ONCE PO 07/27/17 11:15 07/27/17 12:01 DC 07/27/17 13:22 40 MG Aspirin (Ecotrin Tab) 81 mg 1115 ONCE PO 07/27/17 11:15 07/27/17 12:01 DC 07/27/17 13:21 81 MG ECG Per My Interpretation Indication: other (numbness) Rate (beats per minute): 70 Rhythm: normal sinus Findings: no acute ischemic change, no ectopy ED Course 0637: Past medical records reviewed. The patient was evaluated in room B3. A complete history and physical examination was performed. 0642: Sodium Chloride 1000 ml @ 150 mls/hr IV 0940: I reevaluated the patient, and I discussed the treatment plan with him, and he was agreeable. 0952: I reviewed the patient's case with Dr. Drew Gordon. He will evaluate the patient for further management. Medical Decision Differential diagnosis: Etiologies such as metabolic, infection, hypo/hyperglycemia, electrolyte abnormalities, cardiac sources, intracerebral event, toxicologic, neurologic, as well as others were entertained. This patient was evaluated and appeared to be in no significant distress. IV access was obtained and laboratory work was drawn. The patient was placed on surveillance system monitor and found to be in a normal sinus rhythm. EKG reveals no evidence of acute ischemic change. Patient was hydrated with normal saline solution. CT scan of the head was performed and is concerning for a right carotid obstruction. CT angiogram of the head and neck were then performed and are negative. Given the patient's recent history of PE, the fact that he stopped his Xarelto 1 week ago and now has this presentation, is concerning for a TIA. Case was discussed with the hospitalist service will evaluate the patient for admission and further management. Patient and his are aware of the plan and agree. Medication Reconcilliation Current Medication List: was personally reviewed by me Blood Pressure Screening Patient's blood pressure: Elevated blood pressure Monitored by the hospitalist Consults Time Called: [phone] Consulting Physician: Dr. Drew Gordon Returned Call: [phone] I reviewed the patient's case with Dr. Drew Gordon. He will evaluate the patient for further management. Impression Primary Impression: TIA (transient ischemic attack) Scribe Attestation The scribe's documentation has been prepared under my direction and personally reviewed by me in its entirety. I confirm that the note above accurately reflects all work, treatment, procedures, and medical decision making performed by me. Departure Information Dispostion Being Evaluated By Hospitalist Referrals Edward Madera III, CRNP (PCP) Patient Instructions My [facility]
[2017-07-27 06:52] LABS: ALBUMIN 3.6 gm/dl (3.4-5.0); ALT/SGPT 167 U/L (12-78); BLOOD UREA NITROGEN 18 mg/dl (7-18); CALCIUM 8.9 mg/dl (8.5-10.1); CARBON DIOXIDE 27 mmol/L (21-32); CREATININE 1.17 mg/dl (0.60-1.40); GLUCOSE 89 mg/dl (70-99); POTASSIUM 3.7 mmol/L (3.5-5.1); SODIUM 139 mmol/L (136-145)
[2017-07-27 07:03] LABS: ALKALINE PHOSPHATASE 109 U/L (45-117); AST/SGOT 76 U/L (15-37)
[2017-07-27] MEDS ORDERED: OPTIRAY 320 IV PRN (07:15)
--- NOTE | 2017-07-27 07:34 | DIAGNOSTIC IMAGING REPORT ---
HEAD ANGIO WITH CONTRAST, NECK ANGIO WITH CONTRAST CLINICAL HISTORY: 52 years-old Male presenting with right carotid plaque versus thrombus. TECHNIQUE: Multidetector CT angiography of the head and neck was performed after the administration of intravenous contrast. 3-D volumetric and/or maximum intensity projection (MIP) images were subsequently reconstructed for review. IV contrast: 92 mL of Optiray 320. A dose lowering technique was used consistent with the principles of ALARA (as low as reasonably achievable). Stenosis measurements were based on NASCET-like criteria. COMPARISON: Noncontrast CT head performed on 07/27/2017 at 6:[address] DOSE (mGy.cm): The estimated cumulative dose is 638.62 mGy.cm. FINDINGS: [employer] Control Man topogram: Unremarkable. CTA head: Evaluation slightly degraded by timing of the contrast bolus with opacification of the cerebral veins. Anterior circulation demonstrates patent intracranial portions of the internal carotid arteries. Anterior and middle cerebral arteries patent. Anterior commuting artery patent. Posterior circulation demonstrates codominant vertebral arteries. Patent posterior inferior cerebellar arteries. Basilar, anterior inferior cerebellar, superior cerebellar, and posterior cerebral arteries patent. Bilateral posterior communicating arteries patent. No evidence of aneurysm, focal vessel occlusion, intraluminal thrombus, or significant stenosis of the intracranial arteries. Dural venous sinuses patent. CTA neck: Three-vessel aortic arch with patent origins. Bilateral common and internal carotid arteries patent. Origins and courses of the codominant vertebral arteries patent. No evidence of dissection, thrombus, significant stenosis, or focal vessel occlusion. Opacification of the right max or sinus and extensive mucosal thickening in the left max or sinus. Otherwise soft tissues of the neck within normal limits allowing for the phase of contrast. Lung apices clear. Degenerative changes of the spine. IMPRESSION: 1. The abnormality detected on CT had does not have a correlate on CTA and may have represented volume averaging of the clinoid process. No evidence of aneurysm, focal vessel occlusion, intraluminal thrombus, or significant stenosis of the intracranial arteries. 2. No evidence of dissection, focal vessel occlusion, or stenosis in the cervical arteries. Electronically signed by: Trace Cee M.D. 07/27/2017 7:33 AM Dictated Date/Time: 07/27/2017 7:20 AM
[2017-07-27] MEDS ORDERED: PHARMACIST DISCHARGE MED REC CONSULT PRN (11:15)
[2017-07-27] MEDS ORDERED: POLYETHYLENE (MIRALAX) 17 GM PACK PO PRN (11:15)
[2017-07-27] MEDS ORDERED: MAGNESIUM HYDROXIDE SUSP 30 ML UDC PO PRN (11:15)
[2017-07-27] MEDS ORDERED: ONDANSETRON INJ 2 MG/ML 2 ML VIAL IV PRN (11:15)
[2017-07-27] MEDS ORDERED: ATORVASTATIN 40 MG TAB PO ONE (11:15)
[2017-07-27] MEDS ORDERED: ASPIRIN 81 MG ECTAB PO ONE ×2 (11:15→13:21)
[2017-07-27] MEDS ORDERED: ACETAMINOPHEN 325 MG TAB PO PRN (11:15)
[2017-07-27] MEDS ORDERED: ALUMINUM/MAGNESIUM/SIMETH (MAALOX MAX) 30 ML UDC PO PRN (11:15)
[2017-07-27 11:42] VITALS: O2SAT 98; Ht 170.2 cm; Wt 81.9 kg
--- NOTE | 2017-07-27 11:44 | History and Physical ---
History & Physical Date & Time of Service: Jul 27, 2017 at 11:31 Chief Complaint: Numbness On Right Side Primary Care Physician: Edward Madera III, CRNP History of Present Illness Source: patient, spouse, clinic records, hospital records This is a 52 y/o male with a history of HTN and PE in December 2016 who presented to the ED on 07/27 with persistent right sided numbness/tingling. The patient states he was in his normal state of health yesterday. He woke up around 3 or 4 this morning with numbness in his right arm and leg, as if he had slept on that side. Now several hours later, the tingling still persists. He denies any other associated symptoms such as weakness, vision changes, dizziness/ lightheadedness, slurred speech, facial droop, etc. 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 He was treated with Xarelto for 6 months and just taken off anticoagulation last week. He denies any known family history of clots or stroke. The patient denies fevers, chills, sweats, chest pain, palpitations, claudication, cough, wheezing, shortness of breath, nausea, vomiting, abdominal pain, dysuria, hematuria, urinary retention, paralysis, weakness. Past Medical/Surgical History HTN H/o anemia H/o insomnia PE December 2016 Family History Cancer (gastric) FH: seizures Hypertension Social History Smoking Status: Never Smoker Smokeless Tobacco Use: No Alcohol Use: none Drug Use: none Marital Status: Housing status: lives with significant other Occupational Status: employed (at [employer]) Immunizations History of Influenza Vaccine: No History of Tetanus Vaccine?: No History of Pneumococcal: No History of Hepatitis B Vaccine: No Allergies Coded Allergies: No Known Allergies (Verified , 07/27/17) Home Medications Scheduled Fish Oil (Hollis-3), 1 CAP PO DAILY Metoprolol Succ (Toprol Xl) (Toprol-Xl), 25 MG PO DAILY Multivitamin (Multivitamin), 1 TAB PO DAILY Review of Systems Constitutional: No fever, No chills, No sweats Eyes: No worsening of vision, No eye pain, No diplopia ENT: No hearing loss, No nasal symptoms, No trouble swallowing Respiratory: No cough, No wheezing, No shortness of breath Cardiovascular: No chest pain, No claudication, No palpitations Abdomen: No pain, No nausea, No vomiting Musculoskeletal: No joint pain, No muscle pain, No swelling Genitourinary - Male: No dysuria, No urinary retention, No hematuria Neurologic: +Right sided numbness/tingling. No paralysis, No weakness Integumentary: No rash, No itch, No color change Physical Exam Vital Signs Date Time Temp Pulse Resp B/P (MAP) Pulse Ox O2 Delivery O2 Flow Rate FiO2 07/27/17 10:15 74 18 144/98 98 Room Air 07/27/17 09:15 69 18 133/87 98 Room Air 07/27/17 07:56 74 18 140/82 98 Room Air 07/27/17 07:04 81 18 145/93 98 Room Air 07/27/17 06:36 73 07/27/17 06:31 85 16 141/95 98 Room Air 07/27/17 06:10 98 Room Air 07/27/17 05:58 36.4 80 18 163/90 99 Room Air General appearance: Well-developed, well-nourished, no apparent distress Head: Normocephalic, atraumatic Eyes: Normal inspection, PERRL, EOMI ENT: Normal ENT inspection, hearing grossly normal, pharynx normal Neck: Supple, no JVD, trachea midline Respiratory/Chest: Lungs clear to auscultation, normal breath sounds, no respiratory distress Cardiovascular: Regular rate & rhythm, no gallop, no murmur Abdomen/GI: Normal bowel sounds, non-tender, soft Extremities/Musculoskeletal: Normal inspection, no calf tenderness, no pedal edema Neurological/Psych: +No facial droop, pronator drift. Strength 5/5 in all extremities. Sensation largely equal bilaterally but pt reports tingling feels the same as when he woke up. Alert, normal mood/affect, oriented x 3 Skin: Normal color, warm/dry, no rash Diagnostics Laboratory Results Results Past 24 Hours Test 07/27/17 06:15 Range/Units White Blood Count 9.91 4.8-10.8 K/uL Red Blood Count 4.69 4.7-6.1 M/uL Hemoglobin 14.8 14.0-18.0 g/dL Hematocrit 42.2 42-52 % Mean Corpuscular Volume 90.0 80-100 fL Mean Corpuscular Hemoglobin 31.6 25-34 pg Mean Corpuscular Hemoglobin Concent 35.1 32-36 g/dl Platelet Count 309 130-400 K/uL Mean Platelet Volume 9.2 7.4-10.4 fL RDW Standard Deviation 44.1 36.4-46.3 fL RDW Coefficient of Variation 13.5 11.5-14.5 % Neutrophils % (Manual) 33.0 % Lymphocytes % (Manual) 25.0 % Monocytes % (Manual) 4.0 % Eosinophils % (Manual) 2.0 % Basophils % (Manual) 2.0 0-2 % Neutrophils # (Manual) 3.27 1.4-6.5 K/uL Total Absolute Neutrophils 3.27 1.4-6.5 K/uL Lymphocytes # (Manual) 2.48 1.2-3.4 K/uL Total Absolute Lymphocytes 5.85 1.2-3.4 K/uL Monocytes # (Manual) 0.40 0.11-0.59 K/uL Eosinophils # (Manual) 0.20 0-0.5 K/uL Basophils # (Manual) 0.20 0-0.2 K/uL Percent Large Granular Lymphocytes 34.0 % Absolute Large Granular Lymphocytes 3.37 K/uL Red Blood Cell Morphology Unremarkable Prothrombin Time 10.3 9.0-12.0 SECONDS Prothromb Time International Ratio 1.0 0.9-1.1 Sodium Level 139 136-145 mmol/L Potassium Level 3.7 3.5-5.1 mmol/L Chloride Level 105 98-107 mmol/L Carbon Dioxide Level 27 21-32 mmol/L Anion Gap 7.0 3-11 mmol/L Blood Urea Nitrogen 18 7-18 mg/dl Creatinine 1.17 0.60-1.40 mg/dl Est Creatinine Clear Calc Drug Dose 77.0 ml/min Estimated GFR () 83.2 Estimated GFR (Non- 71.8 BUN/Creatinine Ratio 15.0 10-20 Random Glucose 89 70-99 mg/dl Calcium Level 8.9 8.5-10.1 mg/dl Magnesium Level 2.2 1.8-2.4 mg/dl Total Bilirubin 0.3 0.2-1 mg/dl Aspartate Amino Transf (AST/SGOT) 76 15-37 U/L Alanine Aminotransferase (ALT/SGPT) 167 12-78 U/L Alkaline Phosphatase 109 45-117 U/L Troponin I < 0.015 0-0.045 ng/ml Total Protein 8.0 6.4-8.2 gm/dl Albumin 3.6 3.4-5.0 gm/dl Globulin 4.4 2.5-4.0 gm/dl Albumin/Globulin Ratio 0.8 0.9-2 Thyroid Stimulating Hormone (TSH) 4.020 0.300-4.500 uIu/ml Diagnostic Radiology Reviewed the following studies and agree with interpretation as follows: HEAD WITHOUT CONTRAST (CT) CLINICAL HISTORY: 52 years-old Male with right sided numbness. Acute right-sided numbness TECHNIQUE: Multiple axial CT images of the head were obtained without contrast. A dose lowering technique was utilized adhering to the principles of ALARA. CT DOSE: 537.48 mGy.cm COMPARISON: None. FINDINGS: No acute intracranial hemorrhage, midline shift, intracranial mass, hydrocephalus, territorial ischemia or abnormal extra-axial collection. There is increased attenuation in the region of the right carotid terminus seen on images 6 and 7 of series 2 The calvarium is intact. The paranasal sinuses, mastoid air cells, and middle ear cavities are clear. IMPRESSION: 1. No acute intracranial hemorrhage, midline shift or territorial infarction. 2. Asymmetrically increased attenuation of the right carotid terminus suggests atherosclerotic plaquing or possible thrombus. Correlate with clinical symptomatology and possibly CTA of the head to further evaluate. HEAD ANGIO WITH CONTRAST, NECK ANGIO WITH CONTRAST CLINICAL HISTORY: 52 years-old Male presenting with right carotid plaque versus thrombus. TECHNIQUE: Multidetector CT angiography of the head and neck was performed after the administration of intravenous contrast. 3-D volumetric and/or maximum intensity projection (MIP) images were subsequently reconstructed for review. IV contrast: 92 mL of Optiray 320. A dose lowering technique was used consistent with the principles of ALARA (as low as reasonably achievable). Stenosis measurements were based on NASCET-like criteria. COMPARISON: Noncontrast CT head performed on 07/27/2017 at 6:[address] DOSE (mGy.cm): The estimated cumulative dose is 638.62 mGy.cm. 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 CTA head: Evaluation slightly degraded by timing of the contrast bolus with opacification of the cerebral veins. Anterior circulation demonstrates patent intracranial portions of the internal carotid arteries. Anterior and middle cerebral arteries patent. Anterior commuting artery patent. Posterior circulation demonstrates codominant vertebral arteries. Patent posterior inferior cerebellar arteries. Basilar, anterior inferior cerebellar, superior cerebellar, and posterior cerebral arteries patent. Bilateral posterior communicating arteries patent. No evidence of aneurysm, focal vessel occlusion, intraluminal thrombus, or significant stenosis of the intracranial arteries. Dural venous sinuses patent. CTA neck: Three-vessel aortic arch with patent origins. Bilateral common and internal carotid arteries patent. Origins and courses of the codominant vertebral arteries patent. No evidence of dissection, thrombus, significant stenosis, or focal vessel occlusion. Opacification of the right max or sinus and extensive mucosal thickening in the left max or sinus. Otherwise soft tissues of the neck within normal limits allowing for the phase of contrast. Lung apices clear. Degenerative changes of the spine. IMPRESSION: 1. The abnormality detected on CT had does not have a correlate on CTA and may have represented volume averaging of the clinoid process. No evidence of aneurysm, focal vessel occlusion, intraluminal thrombus, or significant stenosis of the intracranial arteries. 2. No evidence of dissection, focal vessel occlusion, or stenosis in the cervical arteries. EKG Reviewed EKG and agree with interpretation as follows: 70 bpm, NSR Impression Assessment and Plan 52 y/o male with a history of HTN and PE in December 2016 who presented to the ED on 07/27 with persistent right sided numbness/tingling. Pt arrived to ED afebrile , VSS. Head CT with possible plaquing or thrombus at right carotid terminus, but this finding does not correlate on head and neck CTA, and CTA is completely negative. EKG no ischemic changes. AST and ALT are elevated, otherwise labs grossly unremarkable. CVA/TIA -Admit to telemetry for observation -Neurology consulted, appreciate recs -Stroke protocol -Neuro checks q4h -MRI brain -Echo with bubble study. Last echo December 2016 normal -Start ASA and Lipitor 40 mg PO qd, continue beta alfredo -Check fasting lipid panel and HgbA1c to assess cardiovascular risk -PT/OT evaluate and treat HTN--stable -Continue Toprol XL 25 mg PO qd H/o PE--unprovoked, Dopplers had been negative for DVT bilaterally and echo normal, negative for thrombus at that time DVT prophylaxis -Enoxaparin 40 mg SC q24h -BERNARDINO Rosen Code Status -Level I, FULL RESUSCITATION STATUS Resuscitation Status VTE Prophylaxis Will order VTE Prophylaxis: Yes Note Attending Attestation & Admission Note: Pt seen/examined, chart reviewed, care plan d/w PA Mai Shukla. I agree w/ the judge components of her admission documentation. 52yo male with h/o HTN & unprovoked PE in December 2016 - just finished 6 months of xarelto last week - who presented today with c/o right sided numbness. Started this AM upon awakening. No motor symptoms, speech symptoms, or visual deficits/ataxia. By the time of my assessment (he was on the tele unit) his sensory loss was much better - numbness was restricted to the hand/foot only. Denies any chronic fevers, weight loss, sweats, chills, or other constitutional symptoms. NO family h/o VTE or stroke. PMH, PSH, allergies, meds, sochx, famhx, ros - reviewed VSS gen - NAD, speech fluent/clear face - no droop neck - no lymphadenopathy, no bruits heart - RRR, s1, s2, no murmur lungs - CTA b/l abd - soft, NT, ND, BS+, no HSM neuro - strength 5/5 x 4 exts, no drift, sensory intact to light touch b/l cbc - atypical lymphs; previous cbc's with smudge cells, atypical lymphs previous peripheral smear review recommended flow cytometry globulin 4.4 ast/alt elevated A/P: 1. TIA with right-sided sensory loss - since pure sensory symptoms - lacunar? 2. abnormal CBC with prior smudge cells, atypical lymphs, etc 3. h/o unprovoked PE 4. abnormal globulin level 5. abnormal transaminases discussed his case with on-call neuro who will see in the AM asa, statin for now; if an underlying lymphoproliferate d/o or hypercoagulable state is present...anticoagulation once again for secondary prevention?? heme/onc consult requested due to the above and his abnormal CBC - send SPEP, flow cytometry, lupus anticoagulant, antiphospholipid ab's repeat ast/alt in am - fatty liver?? Shabbir KOCH MD
--- NOTE | 2017-07-27 12:24 | DIAGNOSTIC IMAGING REPORT ---
BRAIN WITHOUT CONTRAST HISTORY: 52 years-old Male Stroke/TIA acute strokelike symptoms with numbness of the right arm and leg. Acute headache COMPARISON: CTA had neck of same day, CT head same day TECHNIQUE: Multiplanar multisequence MRI of the brain was obtained without contrast. FINDINGS: The large [id number] carbon blocks press operator localizer images demonstrate no gross abnormality. Several sequences are mildly motion degraded. There is no restricted diffusion to suggest acute or subacute infarction. Punctate focus of intermediate signal of the left paramedian frontal lobe on the diffusion-weighted images, image 19 series 4 is likely of no clinical significance. There is no acute intracranial hemorrhage, midline shift, abnormal extra-axial collections, hydrocephalus or intracranial mass. Multifocal areas of T2/FLAIR prolongation are noted within the subcortical and periventricular white matter of the cerebral hemispheres bilaterally suggesting mild chronic microvascular ischemic changes. The major flow voids at the level of the skull base appear patent. Mastoid air cells are generally clear. The right maxillary sinus appears completely opacified. Mild mucosal thickening of the left maxillary sinus. The orbits, scalp, calvarium and soft tissues appear unremarkable. Midline structures including the corpus callosum, brainstem, optic chiasm, pituitary and pineal gland appear unremarkable. There is no cerebellar tonsillar herniation. IMPRESSION: 1. No acute intracranial abnormality. No evidence of acute or subacute infarction. 2. Probable mild chronic microvascular ischemic changes. 3. Paranasal sinus disease as above. The above report was generated using voice recognition software. It may contain grammatical, syntax or spelling errors. Electronically signed by: Antione Wren M.D. 07/27/2017 12:23 PM Dictated Date/Time: 07/27/2017 12:17 PM
[2017-07-27 13:53] LABS: HEMOGLOBIN A1C 5.3 % (4.5-5.6)
[2017-07-27] MEDS ORDERED: IV FLUIDS COMPLETED PRN (14:00)
--- NOTE | 2017-07-27 14:11 | ECHOCARDIOGRAM REPORT ---
*NOTICE TO RECEIVING LIBERTARIAN AGENCY This information is strictly Confidential and protected under [place] law. [place] law prohibits you from making any further disclosure of this information unless further disclosure is expressly permitted by the written consent of the person to whom it pertains or is authorized by law. A general authorization for the release of medical or other information is not sufficient for this purpose. Hospital accepts no responsibility if the information is made available to any other person, INCLUDING THE PATIENT. Interpretation Summary * Name: ANDREA MARLOW Study Date: 07/27/2017 12:43 PM BP: 148/99 mmHg * Patient Location: C.EDB HR: 74 * : 1965 (M/d/yyyy) Gender: Male Height: 67 in * Age: 52 yrs Ethnicity: CA Weight: 182 lb * Ordering Physician: Mai Shukla * Referring Physician: Self, Referred * Performed By: Rachel Machuca RCS * * Reason For Study: CEREBRAL ISCHEMIA / EMBOLUS * BSA: 1.9 m2 * -- Conclusions -- * Left ventricular systolic function is normal. * No regional wall motion abnormalities noted. * Ejection Fraction = 60-65%. * There is borderline concentric left ventricular hypertrophy. * A patent foramen ovale is present. Procedure Details * A complete two-dimensional transthoracic echocardiogram was performed (2D, M-mode, Doppler and color flow Doppler). Left Ventricle * The left ventricle is normal in size. * There is borderline concentric left ventricular hypertrophy. * Left ventricular systolic function is normal. * Ejection Fraction = 60-65%. * No regional wall motion abnormalities noted. Right Ventricle * The right ventricular cavity size is normal (basal dimension <4.2 cm in right ventricular apical 4-chamber view). * The right ventricular systolic function is normal. Atria * The left atrium is mildly dilated. * Right atrial size is normal. * A patent foramen ovale is present. Mitral Valve * The mitral valve anatomy is normal. * There is no mitral valve stenosis. * Significant mitral regurgitation is absent. Tricuspid Valve * The tricuspid valve anatomy is normal. * There is no tricuspid stenosis. * Significant tricuspid regurgitation is absent. Aortic Valve * The aortic valve is normal in structure and function. * Aortic stenosis is absent. * No aortic regurgitation is present. Pulmonic Valve * The pulmonary valve is not well seen, but the Doppler examination is normal without significant regurgitation or stenosis. Great Vessels * The aortic root is normal size. * The pulmonary artery is not well visualized, but is probably normal size. Pericardium/Pleural * There is no pericardial effusion. Great Vessels * Normal inferior vena cava size and collapsability with sniff indicates a normal right atrial pressure of 3 mmHg MMode 2D Measurements and Calculations IVSd 1.2 cm IVSs 1.6 cm LVIDd 4.8 cm LVIDs 2.9 cm LVPWd 1.2 cm LVPWs 1.5 cm IVS/LVPW 1.0 FS 40.3 % EDV(Teich) 106.3 ml ESV(Teich) 30.9 ml EF(Teich) 70.9 % EDV(cubed) 108.9 ml ESV(cubed) 23.2 ml EF(cubed) 78.7 % % IVS thick 33.4 % % LVPW thick 24.0 % LV mass(C)d 218.0 grams LV mass(C)dI 112.2 grams/m\S\2 LV mass(C)s 156.3 grams LV mass(C)sI 80.4 grams/m\S\2 SV(Teich) 75.4 ml SI(Teich) 38.8 ml/m\S\2 SV(cubed) 85.8 ml SI(cubed) 44.1 ml/m\S\2 Ao root diam 2.8 cm Ao root area 6.3 cm\S\2 LA dimension 4.0 cm LA/Ao 1.4 LVOT diam 2.0 cm LVOT area 3.0 cm\S\2 LVAd ap4 33.9 cm\S\2 LVLd ap4 9.1 cm EDV(MOD-sp4) 102.2 ml EDV(sp4-el) 107.9 ml LVAs ap4 22.3 cm\S\2 LVLs ap4 7.8 cm ESV(MOD-sp4) 51.5 ml ESV(sp4-el) 53.8 ml EF(MOD-sp4) 49.6 % EF(sp4-el) 50.1 % LVAd ap2 34.5 cm\S\2 LVLd ap2 9.4 cm EDV(MOD-sp2) 101.9 ml EDV(sp2-el) 108.1 ml LVAs ap2 21.7 cm\S\2 LVLs ap2 7.4 cm ESV(MOD-sp2) 52.4 ml ESV(sp2-el) 53.9 ml EF(MOD-sp2) 48.6 % EF(sp2-el) 50.1 % LVLd %diff 3.2 % EDV(MOD-bp) 103.6 ml LVLs %diff -5.31 % ESV(MOD-bp) 52.7 ml EF(MOD-bp) 49.1 % SV(MOD-sp4) 50.7 ml SI(MOD-sp4) 26.1 ml/m\S\2 SV(MOD-sp2) 49.5 ml SI(MOD-sp2) 25.5 ml/m\S\2 SV(MOD-bp) 50.9 ml SI(MOD-bp) 26.2 ml/m\S\2 SV(sp4-el) 54.1 ml SI(sp4-el) 27.8 ml/m\S\2 SV(sp2-el) 54.2 ml SI(sp2-el) 27.9 ml/m\S\2 Doppler Measurements and Calculations MV E max godfrey 80.9 cm/sec MV A max godfrey 59.3 cm/sec MV E/A 1.4 MV P1/2t max godfrey 85.4 cm/sec MV P1/2t 91.8 msec MVA(P1/2t) 2.4 cm\S\2 MV dec slope 272.6 cm/sec\S\2 MV dec time 0.26 sec Ao V2 max 107.0 cm/sec Ao max PG 4.6 mmHg Ao max PG (full) 1.6 mmHg [place](V,A) 2.4 cm\S\2 [place](V,D) 2.4 cm\S\2 LV V1 max PG 3.0 mmHg LV V1 max 86.2 cm/sec PA V2 max 164.8 cm/sec PA max PG 10.9 mmHg
[2017-07-27 15:00] VITALS: BP 148/94; PULSE 73; TEMP 36.9; O2SAT 99
[2017-07-27 16:00] VITALS: O2SAT 99
[2017-07-27] MEDS ORDERED: ENOXAPARIN 40 MG/0.4 ML SYR SC SCH (16:00)
[2017-07-27 19:36] VITALS: BP 150/83; PULSE 77; TEMP 37.1; O2SAT 96
[2017-07-27 20:00] VITALS: O2SAT 99
[2017-07-27] MEDS ORDERED: NURSING VERBAL MED ORDER ONE (20:00)
[2017-07-27] MEDS ORDERED: ZOLPIDEM TARTRATE 10 MG TAB PO PRN (20:15)
[2017-07-27 23:18] VITALS: BP 123/79; PULSE 80; TEMP 37; O2SAT 96
[2017-07-28 03:12] VITALS: BP 119/79; PULSE 71; TEMP 36.6; O2SAT 97
[2017-07-28 07:33] LABS: BASO % 0.3 %; BASO ABS # 0.02 K/uL (0-0.2); EOS % 3.4 %; EOS ABS # 0.27 K/uL (0-0.5); HEMATOCRIT 44.8 % (42-52); HEMOGLOBIN 15.8 g/dL (14.0-18.0); IG# 0.01 K/uL (0.00-0.02); LYMPH % 41.2 %; LYMPH ABS # 3.29 K/uL (1.2-3.4); MEAN CELL VOLUME 90.7 fL (80-100); MEAN CORPUSCULAR HGB CONC 35.3 g/dl (32-36); MEAN PLATELET VOLUME 9.5 fL (7.4-10.4); MONO % 11.8 %; MONO ABS # 0.94 K/uL (0.11-0.59); NEUT % 43.2 %; NEUT ABS # 3.45 K/uL (1.4-6.5); PLATELET COUNT 290 K/uL (130-400); RED CELL DISTRIBUTION WIDTH CV 13.4 % (11.5-14.5); RED CELL DISTRIBUTION WIDTH SD 44.2 fL (36.4-46.3); WHITE BLOOD COUNT 7.98 K/uL (4.8-10.8)
[2017-07-28 07:43] VITALS: BP 142/87; PULSE 68; TEMP 36.7; O2SAT 97
[2017-07-28 07:54] LABS: CALCIUM 9.1 mg/dl (8.5-10.1); CREATININE 1.11 mg/dl (0.60-1.40)
[2017-07-28] MEDS ORDERED: NURSING VERBAL MED ORDER ONE (08:00)
[2017-07-28] MEDS ORDERED: METOPROLOL SUCC 25MG EXT REL TAB PO SCH ×2 (09:00→21:00)
[2017-07-28] MEDS ORDERED: OMEGA-3 (PURIFIED FISH OIL) 1 GM CAP PO SCH (09:00)
[2017-07-28] MEDS ORDERED: ASPIRIN 81 MG ECTAB PO SCH (09:00)
[2017-07-28] MEDS ORDERED: ATORVASTATIN 40 MG TAB PO SCH (09:00)
[2017-07-28] MEDS ORDERED: MULTIVITAMIN TAB PO SCH (09:00)
--- NOTE | 2017-07-28 09:49 | Neurology Consultation ---
Neurology Consultation Date of Consultation: Jul 28, 2017. Attending Physician: Alex Russell MD Primary Care Physician: Edward Madera III, CRNP Reason for Consultation: Right sided numbness and tingling History of Present Illness Source: patient 52 y/o M with PMH of HTN, PE in december 2016 presented to the ER with c/o right upper and lower extremity numbness and tingling which started at about 4.30 AM yesterday morning when he woke up from sleep. He states that he felt as if his right side had fallen asleep. he denied any weakness, headaches, confusion, blurry vision or slurred speech, dizziness or lightheadedness. he did not have any similar episodes in the past. He had an unprovoked PE in December 2016 and was on Xarelto for about 6 months until last week. denies any f/h of clotting disorders or stroke. denies any CP/SOB/palpitations. denies tobacco/alcohol/illicit drug use. Currently, he states that his right sided numbness and tingling is totally resolved. He stated that it was persistent until he went to bed last night. denies any weakness, diplopia or visual changes, slurred speech. Past Medical/Surgical History Medical Problems: (1) Cough Status: Acute (2) Hematuria Status: Acute (3) Pleuritic chest pain Status: Acute (4) Pulmonary embolism Status: Acute (5) Right flank pain Status: Acute (6) TIA (transient ischemic attack) Status: Acute (7) Upper respiratory infection Status: Acute Hypertension and recent history of PE Family History Family history cancer and hypertension No family history of clotting disorders or strokes at a young age Social History Patient is normally independent in his activities of daily living. No tobacco use Smoking Status: Never smoker Smokeless Tobacco Use: No Alcohol Use: none Drug Use: none Marital Status: Housing Status: lives with family Occupation Status: employed (at [employer]) Allergies Coded Allergies: No Known Allergies (Verified , 07/27/17) Current Inpatient Medications Current Inpatient Medications Medications (Trade) Dose Ordered Sig/Binu Route Start Time Stop Time Status Last Admin Dose Admin Ioversol (Optiray 320) 100 ml UD PRN IV 07/27/17 07:15 07/31/17 07:14 Enoxaparin Sodium (Lovenox Inj) 40 mg DAILY@1600 SC 07/27/17 16:00 08/26/17 15:59 07/27/17 17:43 40 MG Acetaminophen (Tylenol Tab) 650 mg Q4H PRN PO 07/27/17 11:15 08/26/17 11:14 Al Hydrox/Mg Hydrox/Simethicone (Maalox Max Susp) 15 ml Q4H PRN PO 07/27/17 11:15 08/26/17 11:14 Magnesium Hydroxide (Milk Of Magnesia Susp) 30 ml Q12H PRN PO 07/27/17 11:15 08/26/17 11:14 Ondansetron HCl (Zofran Inj) 4 mg Q6H PRN IV 07/27/17 11:15 08/26/17 11:14 Polyethylene (Miralax Powder Packet) 17 gm DAILY PRN PO 07/27/17 11:15 08/26/17 11:14 Atorvastatin Calcium (Lipitor Tab) 40 mg QAM PO 07/28/17 09:00 08/27/17 08:59 07/28/17 07:44 40 MG Aspirin (Ecotrin Tab) 81 mg QAM PO 07/28/17 09:00 08/27/17 08:59 07/28/17 07:44 81 MG Miscellaneous Information (Pharmacist Discharge Med Rec Consult) 1 ea UD PRN N/A 07/27/17 11:15 08/26/17 11:14 Fish Oil (Weir-3 (Purified Fish Oil) Cap) 1 gm DAILY PO 07/28/17 09:00 08/27/17 08:59 07/28/17 07:44 1 GM Multivitamins (Multivitamin Tab) 1 tab DAILY PO 07/28/17 09:00 08/27/17 08:59 07/28/17 07:44 1 TAB Miscellaneous (Iv Fluids Completed) 1 ea PRN PRN N/A 07/27/17 14:00 07/27/18 13:59 Zolpidem Tartrate (Ambien Tab) 10 mg HSZ PRN PO 07/27/17 20:15 08/26/17 20:14 07/27/17 22:02 10 MG Metoprolol Succinate (Toprol Xl Tab) 25 mg HS PO 07/28/17 21:00 08/27/17 20:59 Review of Systems Complete review of systems otherwise negative except for the above-noted in HPI Constitutional: No fever, No chills Eyes: No worsening of vision, No diplopia ENT: No hearing loss, No trouble swallowing Respiratory: No cough, No sputum, No shortness of breath, No dyspnea on exertion Cardiovascular: No chest pain Abdomen: No pain, No nausea Musculoskeletal: No joint pain Genitourinary - Male: No hematuria, No dysuria Neurologic: + numbness/tingling (now resolved), No memory loss, No paralysis, No weakness Psychiatric: No depression symptoms Endocrine: No fatigue Hematologic / Lymphatic: No abnormal bleeding/bruising Integumentary: No rash Allergic / Immunologic: No environmental allergies Physical Exam Vital Signs (Past 24 Hrs): Date Time Temp Pulse Resp B/P (MAP) Pulse Ox O2 Delivery O2 Flow Rate FiO2 07/28/17 08:00 Room Air 07/28/17 07:43 36.7 68 18 142/87 (105) 97 Room Air 07/28/17 04:00 Room Air 07/28/17 03:12 36.6 71 16 119/79 (92) 97 Nasal Cannula 07/27/17 23:59 Room Air 07/27/17 23:18 37.0 80 16 123/79 (94) 96 Room Air 07/27/17 20:00 99 Room Air 07/27/17 19:36 37.1 77 16 150/83 (105) 96 Room Air 07/27/17 16:00 99 Room Air 07/27/17 15:00 36.9 73 18 148/94 (112) 99 Room Air 07/27/17 14:23 73 18 145/95 96 Room Air 07/27/17 12:25 91 16 148/99 100 Room Air 07/27/17 11:45 07/27/17 11:42 98 Room Air 07/27/17 10:15 74 18 144/98 98 Room Air GENERAL: Patient is in no acute distress. HEENT: No acute trauma, normocephalic atraumatic, mucous membranes moist, PEERLA NECK: No stridor, no adenopathy, no meningismus, trachea is midline. LUNGS: Clear to auscultation bilaterally, no wheeze, no rhonchi, breath sounds equal. HEART: Without murmurs gallops or rubs, regular rate and rhythm. ABDOMEN: Soft, nontender, bowel sounds positive, no hernias, no peritonitis. EXTREMITIES: No cyanosis or edema, full range of motion of all the joints without pain or difficulty, no signs for acute trauma. NEUROLOGIC: Oriented x 3, no acute motor or sensory deficits, no focal weakness. CN II-XII intact. No pronator drift. Normal dysdiadochokinesis , heel to estrada and finger to nose SKIN: No rash, no jaundice, no diaphoresis. Laboratory Results Past 24 Hours: 07/28/17 06:44 Red Blood Count 4.94, Mean Corpuscular Volume 90.7, Mean Corpuscular Hemoglobin 32.0, Mean Corpuscular Hemoglobin Concent 35.3, Mean Platelet Volume 9.5, Neutrophils (%) (Auto) 43.2, Lymphocytes (%) (Auto) 41.2, Monocytes (%) (Auto) 11.8, Eosinophils (%) (Auto) 3.4, Basophils (%) (Auto) 0.3, Neutrophils # (Auto ) 3.45, Lymphocytes # (Auto) 3.29, Monocytes # (Auto) 0.94, Eosinophils # (Auto ) 0.27, Basophils # (Auto) 0.02 07/28/17 06:50 Test 07/28/17 06:44 07/28/17 06:50 07/28/17 08:50 White Blood Count 7.98 K/uL (4.8-10.8) Red Blood Count 4.94 M/uL (4.7-6.1) Hemoglobin 15.8 g/dL (14.0-18.0) Hematocrit 44.8 % (42-52) Mean Corpuscular Volume 90.7 fL (80-100) Mean Corpuscular Hemoglobin 32.0 pg (25-34) Mean Corpuscular Hemoglobin Concent 35.3 g/dl (32-36) Platelet Count 290 K/uL (130-400) Mean Platelet Volume 9.5 fL (7.4-10.4) Neutrophils (%) (Auto) 43.2 % Lymphocytes (%) (Auto) 41.2 % Monocytes (%) (Auto) 11.8 % Eosinophils (%) (Auto) 3.4 % Basophils (%) (Auto) 0.3 % Neutrophils # (Auto) 3.45 K/uL (1.4-6.5) Lymphocytes # (Auto) 3.29 K/uL (1.2-3.4) Monocytes # (Auto) 0.94 K/uL (0.11-0.59) Eosinophils # (Auto) 0.27 K/uL (0-0.5) Basophils # (Auto) 0.02 K/uL (0-0.2) RDW Standard Deviation 44.2 fL (36.4-46.3) RDW Coefficient of Variation 13.4 % (11.5-14.5) Immature Granulocyte % (Auto) 0.1 % Immature Granulocyte # (Auto) 0.01 K/uL (0.00-0.02) Erythrocyte Sedimentation Rate 27 mm/hr (0-14) Anion Gap 2.0 mmol/L (3-11) Est Creatinine Clear Calc Drug Dose 80.7 ml/min Estimated GFR () 88.6 Estimated GFR (Non- 76.5 BUN/Creatinine Ratio 20.5 (10-20) Calcium Level 9.1 mg/dl (8.5-10.1) Aspartate Amino Transf (AST/SGOT) 85 U/L (15-37) Alanine Aminotransferase (ALT/SGPT) 182 U/L (12-78) Triglycerides Level 168 mg/dl (0-150) Cholesterol Level 183 mg/dl (0-200) HDL Cholesterol 40 mg/dl LDL Cholesterol, Calculated 109 mg/dl VLDL Cholesterol, Calculated 34 mg/dl Cholesterol/HDL Ratio 4.6 Imaging [~ rep ct add3]] HEAD WITHOUT CONTRAST (CT) CLINICAL HISTORY: 52 years-old Male with right sided numbness. Acute right-sided numbness TECHNIQUE: Multiple axial CT images of the head were obtained without contrast. A dose lowering technique was utilized adhering to the principles of ALARA. CT DOSE: 537.48 mGy.cm COMPARISON: None. FINDINGS: No acute intracranial hemorrhage, midline shift, intracranial mass, hydrocephalus, territorial ischemia or abnormal extra-axial collection. There is increased attenuation in the region of the right carotid terminus seen on images 6 and 7 of series 2 The calvarium is intact. The paranasal sinuses, mastoid air cells, and middle ear cavities are clear. IMPRESSION: 1. No acute intracranial hemorrhage, midline shift or territorial infarction. 2. Asymmetrically increased attenuation of the right carotid terminus suggests atherosclerotic plaquing or possible thrombus. Correlate with clinical symptomatology and possibly CTA of the head to further evaluate. The above report was generated using voice recognition software. It may contain grammatical, syntax or spelling errors. Electronically signed by: Antione Wren M.D. 07/27/2017 6:35 AM Dictated Date/Time: 07/27/2017 6:29 AM HEAD ANGIO WITH CONTRAST, NECK ANGIO WITH CONTRAST CLINICAL HISTORY: 52 years-old Male presenting with right carotid plaque versus thrombus. TECHNIQUE: Multidetector CT angiography of the head and neck was performed after the administration of intravenous contrast. 3-D volumetric and/or maximum intensity projection (MIP) images were subsequently reconstructed for review. IV contrast: 92 mL of Optiray 320. A dose lowering technique was used consistent with the principles of ALARA (as low as reasonably achievable). Stenosis measurements were based on NASCET-like criteria. COMPARISON: Noncontrast CT head performed on 07/27/2017 at 6:[address] DOSE (mGy.cm): The estimated cumulative dose is 638.62 mGy.cm. FINDINGS: Sql Bi Developer topogram: Unremarkable. CTA head: Evaluation slightly degraded by timing of the contrast bolus with opacification of the cerebral veins. Anterior circulation demonstrates patent intracranial portions of the internal carotid arteries. Anterior and middle cerebral arteries patent. Anterior commuting artery patent. Posterior circulation demonstrates codominant vertebral arteries. Patent posterior inferior cerebellar arteries. Basilar, anterior inferior cerebellar, superior cerebellar, and posterior cerebral arteries patent. Bilateral posterior communicating arteries patent. No evidence of aneurysm, focal vessel occlusion, intraluminal thrombus, or significant stenosis of the intracranial arteries. Dural venous sinuses patent. CTA neck: Three-vessel aortic arch with patent origins. Bilateral common and internal carotid arteries patent. Origins and courses of the codominant vertebral arteries patent. No evidence of dissection, thrombus, significant stenosis, or focal vessel occlusion. Opacification of the right max or sinus and extensive mucosal thickening in the left max or sinus. Otherwise soft tissues of the neck within normal limits allowing for the phase of contrast. Lung apices clear. Degenerative changes of the spine. IMPRESSION: 1. The abnormality detected on CT had does not have a correlate on CTA and may have represented volume averaging of the clinoid process. No evidence of aneurysm, focal vessel occlusion, intraluminal thrombus, or significant stenosis of the intracranial arteries. 2. No evidence of dissection, focal vessel occlusion, or stenosis in the cervical arteries. Electronically signed by: Trace Cee M.D. 07/27/2017 7:33 AM Dictated Date/Time: 07/27/2017 7:20 AM [~ rep ct add3]] HEAD ANGIO WITH CONTRAST, NECK ANGIO WITH CONTRAST CLINICAL HISTORY: 52 years-old Male presenting with right carotid plaque versus thrombus. TECHNIQUE: Multidetector CT angiography of the head and neck was performed after the administration of intravenous contrast. 3-D volumetric and/or maximum intensity projection (MIP) images were subsequently reconstructed for review. IV contrast: 92 mL of Optiray 320. A dose lowering technique was used consistent with the principles of ALARA (as low as reasonably achievable). Stenosis measurements were based on NASCET-like criteria. COMPARISON: Noncontrast CT head performed on 07/27/2017 at 6:[address] DOSE (mGy.cm): The estimated cumulative dose is 638.62 mGy.cm. FINDINGS: Sql Bi Developer topogram: Unremarkable. CTA head: Evaluation slightly degraded by timing of the contrast bolus with opacification of the cerebral veins. Anterior circulation demonstrates patent intracranial portions of the internal carotid arteries. Anterior and middle cerebral arteries patent. Anterior commuting artery patent. Posterior circulation demonstrates codominant vertebral arteries. Patent posterior inferior cerebellar arteries. Basilar, anterior inferior cerebellar, superior cerebellar, and posterior cerebral arteries patent. Bilateral posterior communicating arteries patent. No evidence of aneurysm, focal vessel occlusion, intraluminal thrombus, or significant stenosis of the intracranial arteries. Dural venous sinuses patent. CTA neck: Three-vessel aortic arch with patent origins. Bilateral common and internal carotid arteries patent. Origins and courses of the codominant vertebral arteries patent. No evidence of dissection, thrombus, significant stenosis, or focal vessel occlusion. Opacification of the right max or sinus and extensive mucosal thickening in the left max or sinus. Otherwise soft tissues of the neck within normal limits allowing for the phase of contrast. Lung apices clear. Degenerative changes of the spine. IMPRESSION: 1. The abnormality detected on CT had does not have a correlate on CTA and may have represented volume averaging of the clinoid process. No evidence of aneurysm, focal vessel occlusion, intraluminal thrombus, or significant stenosis of the intracranial arteries. 2. No evidence of dissection, focal vessel occlusion, or stenosis in the cervical arteries. Electronically signed by: Trace Cee M.D. 07/27/2017 7:33 AM Dictated Date/Time: 07/27/2017 7:20 AM BRAIN WITHOUT CONTRAST HISTORY: 52 years-old Male Stroke/TIA acute strokelike symptoms with numbness of the right arm and leg. Acute headache COMPARISON: CTA had neck of same day, CT head same day TECHNIQUE: Multiplanar multisequence MRI of the brain was obtained without contrast. FINDINGS: The large [id number] control tower operator localizer images demonstrate no gross abnormality. Several sequences are mildly motion degraded. There is no restricted diffusion to suggest acute or subacute infarction. Punctate focus of intermediate signal of the left paramedian frontal lobe on the diffusion-weighted images, image 19 series 4 is likely of no clinical significance. There is no acute intracranial hemorrhage, midline shift, abnormal extra-axial collections, hydrocephalus or intracranial mass. Multifocal areas of T2/FLAIR prolongation are noted within the subcortical and periventricular white matter of the cerebral hemispheres bilaterally suggesting mild chronic microvascular ischemic changes. The major flow voids at the level of the skull base appear patent. Mastoid air cells are generally clear. The right maxillary sinus appears completely opacified. Mild mucosal thickening of the left maxillary sinus. The orbits, scalp, calvarium and soft tissues appear unremarkable. Midline structures including the corpus callosum, brainstem, optic chiasm, pituitary and pineal gland appear unremarkable. There is no cerebellar tonsillar herniation. IMPRESSION: 1. No acute intracranial abnormality. No evidence of acute or subacute infarction. 2. Probable mild chronic microvascular ischemic changes. 3. Paranasal sinus disease as above. The above report was generated using voice recognition software. It may contain grammatical, syntax or spelling errors. Electronically signed by: Antione Wren M.D. 07/27/2017 12:23 PM Dictated Date/Time: 07/27/2017 12:17 PM Echo : * Left ventricular systolic function is normal. * No regional wall motion abnormalities noted. * Ejection Fraction = 60-65%. * There is borderline concentric left ventricular hypertrophy. * A patent foramen ovale is suspected. Impression 52 y/o M with PMH of HTN, PE in december 2016 presented to the ER with c/o right upper and lower extremity numbness and tingling which started at about 4.30 AM yesterday morning when he woke up from sleep. He states that he felt as if his right side had fallen asleep. he denied any weakness, headaches, confusion, blurry vision or slurred speech, dizziness or lightheadedness. he did not have any similar episodes in the past. It is likely his symptoms are secondary to TIA however considering his age, a h/ o unprovoked PE and being off of Xarelto for about a week , he will need a hypercoagulable workup. His echo was suggestive of a PFO, will need further imaging /SHINE to rule out any thrombus Plan TIA: - Head CT, CTA, MRI brain unremarkable - Continue aspirin 81 mg daily and Lipitor - SHINE ordered considering TTE suggestive of patent foramen ovale to rule out any thrombus - Hypercoagulable workup including factor V, factor 2, AT III, Protein C, S, beta 2 microglobulin, antiphospholipid ab, lupus anticoagulant etc ordered Neurology attending addendum: Patient was seen and evaluated with resident physician. Agree with the above history and assessment and plan. This is a 52-year-old right-handed male who presented with right upper and lower extremity numbness and tingling since the time that he woke up to the time that he went to bed yesterday. Symptoms appear to have resolved at some point overnight and he reports that he is at his neurological baseline this morning. Patient has never had anything like this in the past. No headaches in association. No other focal neurological symptoms. MRI of the brain report and images were reviewed by myself. Overall unremarkable. There was an incidental indeterminate punctate signal change in the left paramedian frontal lobe on diffusion. CTA of the head and neck was unremarkable Echocardiogram noted PFO suspected Total cholesterol 183, LDL 109, HDL 34, triglycerides 168. Hemoglobin A1c 5.3 Exam: Gen.: Patient is alert and oriented in no acute distress lying in bed Heart: Regular rate and rhythm Extremities: No gross deformities or rashes noted Neurological examination: Mental status: Patient is alert and oriented to person place and time. Able to give his own history. Good fund of knowledge. Attention and concentration normal for the situation. Recent and remote memory intact Speech is fluent without any dysarthria or aphasia noted Cranial nerves: Funduscopic examination was difficult to visualize, but no papilledema noted. Pupils equally round and reactive to light. Extraocular muscles intact without nystagmus. No facial asymmetry noted. Facial sensation intact. Tongue midline. Good palatal elevation. Good shoulder shrug bilaterally. Hearing grossly intact voice. Strength: 5/5 both proximal and distal in all extremities .Tone is normal. Sensation: Grossly intact to light touch in all extremities Deep tendon reflexes: +2 in bilateral biceps and patellar. Toes are downgoing to plantar stimulation bilaterally Coordination: Patient has good finger to nose without dysmetria Station within the bed is normal. A/P: This is a 52-year-old male who presents with TIA symptoms of right hemisensory loss which has resolved. Stroke risk factors include hypertension. Patient also has a history of a single PE with recent discontinuation of Xarelto bringing into question whether he could have an underlying anticoagulant state (which is not clear at this time). Recommend hypercoagulable workup cardiolipin antibodies, beta 2 glycoprotein and lupus anticoagulant were already ordered. In addition we have ordered factor V Leiden, factor II, homocystine, protein LUMBER STACKER OPERATOR, and Antithrombin III for further evaluation. Also had recommended a SHINE for further evaluation of cardioembolic source for stroke in a young patient and to rule out left atrial appendage thrombus. Discussed with chef broiler or fry Dr. Mccormick later on that case. Dr Mccormick is uncomfortable with the risk benefits of a SHINE considering that the patient does not have known underlying A. fib. Agreed that we can continue with stroke workup including hypercoagulable workup and a 30 day event monitor as an outpatient and hold off on SHINE for now. If no clear etiology for his stroke is found, may reconsider a SHINE at a later date. At this time I do not have any indication for anticoagulation, so I have recommended continuing with aspirin and statin for secondary stroke prevention. Follow-up in neurology clinic in approximately 1 month for reevaluation. Neurological recommendations for stroke risk factor modifications: For the first month after hospital discharge, blood pressure recommendations 150 /90-130/80. After the first month, blood pressure recommendations 130/80-110/70 Total cholesterol goal 100-200, and LDL goal less than 100 Hemoglobin A1c goal less than 7 Encourage regular cardiovascular exercise at least 30 minutes 3 times per week -Darlene Anaya, DO Resident Tracking Resident Involvement: Resident Care Provided Care Provided: Adult Hospital Medicine
--- NOTE | 2017-07-28 10:19 | HEMATOLOGY CONSULTATION ---
DATE OF CONSULTATION: 07/28/2017 REASON FOR CONSULTATION: Possible hypercoagulable state. HISTORY OF PRESENT ILLNESS: Mr. Marroquin is a very pleasant 52-year-old gentleman with recent history of pulmonary embolism diagnosed in 2016, presented to the Emergency Department with persistent right-sided numbness and tingling that began yesterday morning and subsided spontaneously by about 10:00 p.m. The patient was in his normal state of reasonably good health when he woke up experiencing numbness confined to his right upper and lower extremity. On presentation, he was still complaining of the same symptoms but denies any overt loss of motor function, slurred speech or other associated neurologic symptomatology. The patient underwent MRI of the brain which for the most part was inconclusive but suggestive of possible chronic small vessel ischemia. Interestingly, this gentleman was diagnosed with an unprovoked pulmonary embolism back in 12/2016 and was placed on Xarelto for 6 months. He had just discontinued anticoagulation a week before his admission. He denies any personal or family history of thrombophilia. He was not previously worked up for his initial clot. I was contacted by Dr. Russell, hospitalist, and he was kind enough to point out Mr. Marroquin also had abnormal peripheral blood spanning back last year, noting atypical lymphocytosis and smudge cells. It was suggested at that time peripheral blood flow cytometry to be performed, unfortunately was not carried out. PAST MEDICAL HISTORY: Significant for hypertension. He did undergo colonoscopy approximately 1 year ago which did reveal a couple of polyps. He is scheduled for repeat examination within the next 6 months. MEDICATIONS: Prior to admission include fish oil, metoprolol 25 mg p.o. daily and a multivitamin. ALLERGIES: No known drug allergies. SOCIAL HISTORY: The patient is currently employed at [employer]. He is . He is a nonsmoker, does not chew tobacco and does not drink alcohol. FAMILY HISTORY: Significant for father who suffered and succumbed to gastric cancer. Also, hypertension is noted. REVIEW OF SYSTEMS: As per HPI, most prominently temporary sensory deficit involving his upper and lower right-sided extremities. He denies any fevers, chills or sweats. His appetite is vigorous and there is no weight loss reported. Skin: No rashes or lesions. No history of dermatosis. HEENT: Negative for headaches, lightheadedness or dizziness. No acute visual or hearing deficits. No sinus symptoms, sore throat or dysphagia. Lymph: No history of lymphadenopathy or lymphoproliferative disorder. Cardiac: Negative for coronary artery disease, no angina or palpitations. Pulmonary: Previous history of unprovoked PE. He is not currently short of breath, dyspneic or orthopneic. No cough or hemoptysis. Gastrointestinal: Negative for abdominal pain, nausea, vomiting, diarrhea or constipation, hematochezia or melenic stools. Genitourinary: No hematuria, dysuria, urinary incontinence. Psychiatric: Negative for anxiety, depression or psychosis. Endocrine: Negative for diabetes or thyroid disease. Neurologic: Negative for prior CVA. No current migraine headaches or history of seizure disorder. Hematologic: Atypical lymphocytosis noted on prior blood smear. PHYSICAL EXAMINATION: GENERAL: Very well-developed and nourished 52-year-old gentleman. Awake, alert and appropriate, in no acute distress. VITAL SIGNS: Temperature 36.7, pulse 68, respirations 18, blood pressure 142/87. SKIN: Without rash or lesion. HEAD: Atraumatic, normocephalic. EYES: PERRLA, EOMI. Sclerae nonicteric. No conjunctival injection. NARES: Patent without rhinorrhea or discharge. MOUTH: Throat clear. Tongue midline. Mucous membranes are moist. NECK: Supple without JVD or thyromegaly. No cervical, supraclavicular, axillary palpable nodes. HEART: Regular rate and rhythm. No clicks, rubs, murmurs or gallops. LUNGS: Clear to auscultation bilaterally. ABDOMEN: Soft, nontender, nondistended, without palpable hepatosplenomegaly. EXTREMITIES: No calf tenderness or swelling. No clubbing, cyanosis or edema. MUSCULOSKELETAL: Strength and pulses are equal in all 4 quadrants. NEUROLOGIC: The patient is awake, alert and oriented x3. Cranial nerves II-XII are intact and there are no gross motor or sensory deficits at the time of examination. LABORATORY DATA: WBC count 7980, hemoglobin 15.8, platelet count 290,000. Absolute lymphocyte count 3290 as compared to abnormal lymphocytes registered the day before at 5850. Sodium 138, potassium 4.0, chloride 106, carbon dioxide 30, BUN 23, creatinine 1.11, AST 85, ALT 82. IMPRESSION: 1. Suspected cerebrovascular accident. 2. Hypertension. 3. History of unprovoked pulmonary embolism. 4. Atypical lymphocytosis as seen on previous peripheral blood specimen. PLAN: Mr. Marroquin is a pleasant 52-year-old gentleman who presented to [facility] Room with subacute onset numbness and tingling involving his upper and lower extremities on the right side. MRI performed is inconclusive, perhaps suggesting small vessel changes, otherwise no acute infarct is noted. I was contacted by Dr. Yinka Russell, hospitalist, regarding this gentleman. He had previously noted that [place] had atypical lymphocytes seen on previous peripheral smear and was not followed up by flow cytometry. Also, concerning is a history of unprovoked PE diagnosed in 12/2016, the patient was anticoagulated for 6 months but not formally evaluated by hematology. He has no prior history of thrombosis nor is there significant family history. Nonetheless, an unprovoked clot is always concerning for possible occult neoplasia or acquired thrombophilia such as lupus anticoagulant and/or antiphospholipid/anticardiolipin antibodies. The fact that he appears to have had an arterial vascular event 1 week after discontinuing anticoagulation is somewhat suspicious. In regard to the abnormal lymphocytosis, we will proceed with peripheral blood flow cytometry and have pathology examine a smear. I have instructed Dr. Russell to pursue lupus anticoagulant as well as antiphospholipid antibodies. He also points out Mr. Marroquin has an elevated globulin fraction, and therefore, will proceed with serum protein electrophoresis with immunofixation. Agree with current anticoagulant strategy utilizing Lovenox prophylactically and continuing an antiplatelet agent as well. We will be more than happy to see Mr. Marroquin follow up in outpatient clinic upon discharge. Thank you very much for allowing me to participate in his care. Hopefully, you will find this consultation helpful.
[2017-07-28 10:44] VITALS: BP 135/92; PULSE 72; O2SAT 97
[2017-07-28 11:38] VITALS: BP 135/92; PULSE 69; TEMP 36.7; O2SAT 98
--- NOTE | 2017-07-28 14:57 | Discharge Instructions ---
Discharge Instructions Date of Service Jul 28, 2017. Admission Reason for Admission: Numbness On Right Side Discharge Discharge Diagnosis / Problem: Transient ischemic attack (TIA) Discharge Goals Goal(s): Decrease discomfort, Improve function, Diagnostic testing, Therapeutic intervention Activity Recommendations Activity Limitations: resume your previous activity (as tolerated) . Instructions / Follow-Up Instructions / Follow-Up You were admitted to the hospital for overnight observation after presenting with right sided numbness/tingling. Work up included a head CT, head and neck CT angiograms, MRI of the brain, echocardiogram, and neurology evaluation. Your imaging studies were grossly normal and your symptoms resolved within 24 hours, suggesting you had a transient ischemic attack (TIA), or mini stroke. Neurology evaluated you and recommended blood work to assess for an underlying clotting disorder, which is pending. Due to your history of unprovoked pulmonary embolism and some abnormalities on your complete blood count, hematology/oncology was also consulted. There is more lab work pending to assess for any underlying malignancy or other condition that may be making you more prone to clotting. In addition, you will have a 30 day event monitor to assess for any abnormal heart rhythms that may have explained this event. Currently there is no further acute intervention needed, and you are medically stable for discharge. Medications: *Cardiology recommends that you resume anticoagulation with Xarelto due to your history of unprovoked pulmonary embolism. This has been sent to your pharmacy. *Please take atorvastatin (Lipitor) 40 mg daily. This is a medication for cholesterol. This has also been sent to your pharmacy. *Continue your other home medications as prescribed. Follow up: *You will be scheduled to follow up with your primary doctor within a week regarding your hospital stay. *You will also be scheduled to follow up with Dr. Gabriel (floater operator) in a few weeks to go over the results of your pending blood work. *You will be scheduled to follow up with cardiology in 1 month after you have finished wearing your 30 day cardiac event monitor, as well as neurology in 1 month to follow up on the TIA. If there is no cause found for your TIA, you may later require an outpatient transesophageal echocardiogram for further evaluation. Please seek medical attention if you experience fevers, chills, sweats, dizziness/lightheadedness, loss of consciousness, chest pain, shortness of breath, nausea, vomiting, numbness or tingling. Risk Factors for Stroke: You can reduce your chances of stroke by working with your medical provider to adopt a healthy lifestyle. Some specific ways to lower your chance of stroke are: * If you are a smoker, now is the time to stop smoking cigarettes * If you are diabetic, improve the control of your blood sugars * Avoid excessive amounts of alcohol * Control high blood pressure * Lose weight if you are overweight * Be sure to lead an active lifestyle * Eat a healthy diet low in salt, cholesterol and fat You should know about other risk factors for stroke that you are unable to control. These include: * Age 55 years or older * Male gender * Certain racial groups: , or / * Family History of Stroke, Mini stroke or Heart Attack * Sickle Cell Disease Follow Up: It is important for you to keep your follow up appointments with your medical provider. Current Hospital Diet Patient's current hospital diet: AHA Diet (Heart Healthy) Discharge Diet Recommended Diet: AHA Diet (Heart Healthy) Pending Studies Studies pending at discharge: no Laboratory Results Hemoglobin A1c Test 07/27/17 06:15 Range/Units Estimated Average Glucose 105 mg/dl Hemoglobin A1c 5.3 4.5-5.6 % Lipid Panel Test 07/28/17 06:50 Range/Units Triglycerides Level 168 H 0-150 mg/dl Cholesterol Level 183 0-200 mg/dl HDL Cholesterol 40 mg/dl Cholesterol/HDL Ratio 4.6 LDL Cholesterol, Calculated 109 mg/dl Medical Emergencies . Who to Call and When: Medical Emergencies: Call 911 immediately if you experience any of the following warning signs and symptoms of Stroke: * Sudden numbness or weakness of the face, arm or leg, especially on one side of the body * Sudden confusion, trouble speaking or understanding * Sudden trouble seeing in one or both eyes * Sudden trouble walking, dizziness, loss of balance or coordination * Sudden severe headache with no cause Do not delay calling 911 if you experience any warning signs or symptoms of a stroke. Delay in seeking medical attention may affect what treatments can be given to you. . Non-Emergent Contact Non-Emergency issues call your: Primary Care Provider, Putty Maker, Neurologist, Specialist (Microelectronics Assembler) Call Non-Emergent contact if: you have a fever, you have any medication questions . Past History Medical & Surgical History: (1) TIA (transient ischemic attack) . "Provider Documentation" section prepared by Mai Shukla. . Internet Developer Recommendations Internet Developer Recommendations: Neurological recommendations for stroke risk factor modifications: For the first month after hospital discharge, blood pressure recommendations 150 /90-130/80. After the first month, blood pressure recommendations 130/80-110/70 Total cholesterol goal 100-200, and LDL goal less than 100 Hemoglobin A1c goal less than 7 Encourage regular cardiovascular exercise at least 30 minutes 3 times per week Stroke Core Measures Reason no t-PA for Stroke: Treatment not indicated Reason no antithrom by day 2: Treatment not indicated Reason no antithrom at D/C: Treatment not indicated (patient started on anticoagulation) Reason no statin at D/C: Treatment provided - N/A Reason no anticoag w/a fib: Treatment not indicated (anticoagulation started due to unprovoked clots, not a-fib)
[2017-07-28] MEDS ORDERED: LPT40 PO (15:01)
[2017-07-28] MEDS ORDERED: RIVA1TAB4 PO (15:01)
[2017-07-28 15:12] VITALS: BP 135/92; PULSE 69; TEMP 36.7; O2SAT 98
--- NOTE | 2017-07-28 15:27 | Discharge Summary ---
Discharge Summary Date of Service Jul 28, 2017. Discharge Summary Admission Date: Jul 27, 2017 at 11:31 Discharge Date: Jul 28, 2017 Discharge Disposition: Home Principal Diagnosis: TIA Problems/Secondary Diagnoses: HTN, h/o unprovoked PE Immunizations: Have You Had Influenza Vaccine: No History of Tetanus Vaccine?: No History of Pneumococcal: No History of Hepatitis B Vaccine: No Procedures: BRAIN WITHOUT CONTRAST HISTORY: 52 years-old Male Stroke/TIA acute strokelike symptoms with numbness of the right arm and leg. Acute headache COMPARISON: CTA had neck of same day, CT head same day TECHNIQUE: Multiplanar multisequence MRI of the brain was obtained without contrast. FINDINGS: The large [id number] unit manager convenience stores localizer images demonstrate no gross abnormality. Several sequences are mildly motion degraded. There is no restricted diffusion to suggest acute or subacute infarction. Punctate focus of intermediate signal of the left paramedian frontal lobe on the diffusion-weighted images, image 19 series 4 is likely of no clinical significance. There is no acute intracranial hemorrhage, midline shift, abnormal extra-axial collections, hydrocephalus or intracranial mass. Multifocal areas of T2/FLAIR prolongation are noted within the subcortical and periventricular white matter of the cerebral hemispheres bilaterally suggesting mild chronic microvascular ischemic changes. The major flow voids at the level of the skull base appear patent. Mastoid air cells are generally clear. The right maxillary sinus appears completely opacified. Mild mucosal thickening of the left maxillary sinus. The orbits, scalp, calvarium and soft tissues appear unremarkable. Midline structures including the corpus callosum, brainstem, optic chiasm, pituitary and pineal gland appear unremarkable. There is no cerebellar tonsillar herniation. IMPRESSION: 1. No acute intracranial abnormality. No evidence of acute or subacute infarction. 2. Probable mild chronic microvascular ischemic changes. 3. Paranasal sinus disease as above. MRI head/neck - no stenosis, aneurysm, or dissection of any vessel of the head/ neck. Echocardiogram - normal EF, normal valves, suspected small PFO. No obvious thrombus. Consultations: Neurology Hematology/oncology Curbsided cardiology Medication Reconciliation New Medications: Rivaroxaban (Xarelto) 20 Mg Tab 1 TAB PO DAILY for 30 Days, #30 TAB Atorvastatin (Lipitor) 40 Mg Tab 40 MG PO HS for 30 Days, #30 TAB Continued Medications: Fish Oil ([place]-3) 1 Ea Cap 1 CAP PO DAILY, CAP Metoprolol Succ (Toprol Xl) (Toprol-Xl) 25 Mg Tabcr 25 MG PO DAILY, #30 TAB Multivitamin (Multivitamin) Tab 1 TAB PO DAILY, TAB Discharge Exam The patient reports feeling well. He states his numbness/tingling resolved last night. He denies any complaints and is eager for discharge. The patient denies fevers, chills, sweats, chest pain, palpitations, claudication, cough, wheezing, shortness of breath, nausea, vomiting, abdominal pain, dysuria, hematuria, urinary retention, paralysis, weakness, numbness and tingling. Constitutional: No fever, No chills, No sweats Eyes: No worsening of vision, No eye pain, No diplopia ENT: No hearing loss, No nasal symptoms, No trouble swallowing Respiratory: No cough, No wheezing, No shortness of breath Cardiovascular: No chest pain, No claudication, No palpitations Abdomen: No pain, No nausea, No vomiting Musculoskeletal: No joint pain, No muscle pain, No swelling Genitourinary - Male: No dysuria, No urinary retention, No hematuria Neurologic: No paralysis, No weakness, No numbness/tingling Integumentary: No rash, No itch, No color change General appearance: Well-developed, well-nourished, no apparent distress Head: Normocephalic, atraumatic Eyes: Normal inspection, PERRL, EOMI ENT: Normal ENT inspection, hearing grossly normal, pharynx normal Neck: Supple, no JVD, trachea midline Respiratory/Chest: Lungs clear to auscultation, normal breath sounds, no respiratory distress Cardiovascular: Regular rate & rhythm, no gallop, no murmur Abdomen/GI: Normal bowel sounds, non-tender, soft Extremities/Musculoskeletal: Normal inspection, no calf tenderness, no pedal edema Neurological/Psych: Alert, normal mood/affect, oriented x 3 Skin: Normal color, warm/dry, no rash Hospital Course 52 y/o male with a history of HTN and PE in December 2016 who presented to the ED on 07/27 with persistent right sided numbness/tingling. Pt arrived to ED afebrile , VSS. Head CT with possible plaquing or thrombus at right carotid terminus, but this finding does not correlate on head and neck CTA, and CTA is completely negative. EKG no ischemic changes. AST and ALT are elevated, otherwise labs grossly unremarkable. TIA--resolved -Admit to telemetry for observation. No acute events overnight on tele, patient in sins rhythm with HR in 60s-80s. -Neurology consulted, appreciate recs: Spoke with Dr. Anaya. Recommend hypercoagulable workup. Will hold off on SHINE for now and instead have 30 day event monitor. If no etiology for stroke is found, consider outpatient SHINE. -Stroke protocol -Neuro checks q4h -MRI brain no acute disease -Echo shows suspected PFO, otherwise normal -Will continue Xarelto and d/c with atorvastatin 40 mg PO qd -Lipid panel with elevated triglycerides at 168. Total cholesterol 183, non- HDL 143 -HgbA1c 5.3 -PT/OT clear to d/c home -30 day cardiac event monitor to assess for any arrhythmias. F/u with cardiology afterwards HTN--stable -Continue Toprol XL 25 mg PO qd H/o PE--unprovoked, Dopplers had been negative for DVT bilaterally and echo normal, negative for thrombus at that time -Cardiology curbsided, recommended continuing indefinite anticoagulation as this was unprovoked -Continue Xarelto 20 mg PO qd Atypical lymphocytosis -Hematology/oncology consulted, appreciate recs: Recheck peripheral smear and flow cytometry. SPEP, lupus anticoagulant, antiphospholipid antibodies pending. Will f/u as outpatient -Pt's brother has non-Hodgkin's lymphoma -Concern for malignancy or other hypercoagulable state given otherwise unprovoked PE plus TIA this admission DVT prophylaxis - lovenox while here Attending Attestation & Discharge Note - Pt seen/examined, chart reviewed, discharge care plan d/w JOSE Shukla. I agree w/ the judge components of her discharge summary. 52yo male - h/o unprovoked PE in 12/2016 and HTN - presented with right-sided numbness. Symptoms gradually resolved in <24 hours. Full TIA/stroke work-up was negative except for small PFO seen on 2d echo. No obvious stroke was seen on MRI. Seen by neurology and they felt his symptoms were c/w TIA. Exact cause of TIA was uncertain; however, in light of prior unprovoked PE - and the fact that this event occurred ~1 week after discontinuation of xarelto - very suspicious for underlying hypercoagulable state or perhaps even a malignant process. Patient noted to have an abnormal CBC since 2017 with atypical lymphocytes and prior smudge cells. Seen by heme/onc - work-up initiated while hospitalized and he will f/u with Dr. Gabriel from the [facility] for this. He will undergo a 30-day event monitor post-discharge to r/o PAF as the cause of this event. There was some debate moving forward with respect to antiplatelet agent/ anticoagulant - at discharge, however, his xarelto was resumed while awaiting his hypercoagulable work-up. Discharge exam - gen - nad neck - no bruits heart - RRR, s1, s2, no murmur lungs - CTA b/l abd - soft, NT, no HSM ext - no edema neuro - strength 5/5 x 4 exts; sensory intact to light touch x 4 exts; no ataxia He will have f/u with cardiology, neurology, his PCP, and heme/onc after discharge. Alex Russell MD Total Time Spent: Greater than 30 minutes This includes examination of the patient, discharge planning, medication reconciliation, and communication with other providers. Discharge Instructions Please refer to the electronic Patient Visit Report (Discharge Instructions) for additional information. Follow-Up Dr. Adilson Gabriel - [facility] - August 13 at 1:30 [facility] [place] Fariba Nickerson PA-C on August 25 at 2:00 [facility] [place] w/ Dr. Mccormick on September 02 at 1:30 SERGEY Bradford on Friday, August 04, 2017 at 10:40am Additional Copies To Fariba Nickerson; Devaughn Mccormick M.D.; Edward Madera III, CRNP; Adilson Gabriel D.O.
== END 2017-07-28 15:31 | disposition home or self-care (01) ==
LOC: C.EDB 05:55 → C.2T 11:31 → ENRESERV 14:09
PROVIDERS: ADMIT Internal Medicine; ATTEND Internal Medicine
DX: G45.9 Transient cerebral ischemic attack, unspecified (principal); I10 Essential (primary) hypertension; D72.820 Lymphocytosis (symptomatic); Z82.0 Family history of epilepsy and other diseases of the nervous system; Z82.49 Family history of ischemic heart disease and other diseases of the circulatory system; Z79.899 Other long term (current) drug therapy; Z86.711 Personal history of pulmonary embolism

== ENCOUNTER 2019-12-01 06:18 | Inpatient (IN) ==
--- NOTE | 2019-11-25 11:17 | Anesthesiology Consultation ---
Date of Service November 25, 2019 Assessment & Plan (1) Encounter for pre-operative examination: Per nursing phone assessment on 11/24: Travel screen- Lives in [place]. Travel to [facility]. Uses PPE. No known COVID-19 positive contacts. No current COVID-19 related symptoms. No hx of COVID-19 testing in past 30 days. - Colonoscopy: 05/10/18: MAC sedation at [facility] Chart Review Chart Review: Acceptable Risk for Surgery and Patient NOT seen in Pre Admission Testing History Surgery Operation Date: 12/01/19 07:45 Proposed Procedures p L3-L4 Decompression Fusion, Spinal Cord Monitoring - Arnav Huynh, Height/Weight Height: 5 ft 7 in Weight: 77.111 kg Allergies Allergy/AdvReac Type Severity Reaction Status Date / Time No Known Drug Allergies Allergy Unknown Verified 11/25/19 08:12 Medications Home Medications Medication Instructions Recorded Confirmed Last Taken aspirin [Aspirin Childrens] 81 mg PO QPM 04/27/18 11/25/19 05/09/18 17:00 multivitamin 1 tab PO HS tab 12/31/18 11/25/19 Unknown omega 2-vsq-flc-fish oil 1,000 mg 1 cap PO HS cap 12/31/18 11/25/19 Unknown (120 mg-180 mg) capsule trazodone 50 mg tablet 50 mg PO HS PRN #30 tab 05/31/19 11/25/19 Unknown albuterol sulfate 90 mcg/actuation 2 puffs INH Q6H PRN #6.7 gm 07/01/19 11/25/19 Unknown aerosol inhaler atorvastatin 10 mg tablet 10 mg PO QPM #90 tab 07/18/19 11/25/19 Unknown hydrocodone-acetaminophen 1 - 2 tab PO Q6H PRN #16 tab 11/02/19 11/25/19 Unknown lisinopril 10 mg PO HS 11/25/19 11/25/19 Unknown metoprolol succinate 50 mg PO HS 11/25/19 11/25/19 Unknown Past Medical History Medical History Hyperlipidemia Hypertension PFO (patent foramen ovale) per 2018 ECHO, hx TIA 2018- on ASA Pulmonary embolism 2016- previously on Xarelto/since discontinued Seizure intermittent as a child, no seizures since age 5 Sleep apnea hx ("no longer has" after tonsillectomy) Transient ischemic attack (TIA) 06/2017 Past Family History Family History Father Dementia Hypertension Stomach cancer Arthritis Gallbladder disease Kidney stones History of thyroid surgery Gastric ulcer Grandfather Gastric ulcer Stroke Mother Hypertension Sister Asthma Hypertension Brother Non-Hodgkin lymphoma Hypokalemia Grandmother Osteoporosis Grandmother Cancer Dementia Grandfather Myocardial infarction Denies family history of Ovarian cancer Prostate cancer Breast cancer Colorectal cancer Past Surgical History Surgical History History of colonoscopy History of tonsillectomy History of tooth extraction Hx of vasectomy Social History Smoking Status: Never smoker Do You Dip or Chew Tobacco: No Hx Alcohol Use: No Hx Substance Use: No substance use type: does not use Testing Laboratory Results 11/24/19 WBC 9.18 H/H 15.0/44.4 PLATELETS 351 SODIUM 138 POTASSIUM 4.3 CHLORIDE 106 CO2 27 BUN 23 CREATININE 1.07 GLUCOSE 92 PT 10.4 INR 1.0 Electrocardiogram Date: 11/24/19 Findings: + SB @ (53) Chest X-Ray Date: 11/24/19 Findings: + NAD Echocardiogram Date: 07/27/17 EF 60-65%. No RWMA. Borderline cLVH. A PFO. Mild LAD. No significant valvular disease.
[~2019-12-01 06:18] MED LIST changes: +ACETAMINOPHEN 500 MG TAB PO SCH; +CEFAZOLIN 1000MG 1,000 MG/7.5 ML SYR IV SCH; +CeleBREX 200 MG CAP PO SCH; -FEXO1TAB46 PO; +GABAPENTIN 900 MG DOSE PO SCH; +LR 15ML/HR IV SCH; -METO25TA3 PO; -MULT-506 PO; -OMEG10007 PO; -RIVA1TAB7 PO
[2019-12-01] MEDS ORDERED: PROPOFOL IV EMULSION 10 MG/ML 20 ML VIAL IV ONE (06:59)
[2019-12-01] MEDS ORDERED: ROCURONIUM BROMIDE 10 MG/ML 5 ML VIAL IV ONE (06:59)
[2019-12-01] MEDS ORDERED: LIDOCAINE HCL 2% 2 ML VIAL/AMP(20MG/ML) INFIL ONE (06:59)
[2019-12-01] MEDS ORDERED: MIDAZOLAM HCL 1 MG/ML 2ML VIAL ONE (07:00)
[2019-12-01] MEDS ORDERED: fentaNYL citrate 100 MCG/2 ML VIAL ONE (07:00)
[2019-12-01] MEDS ORDERED: BACITRACIN INJ 50,000 UNIT VIAL ONE (07:01)
[2019-12-01] MEDS ORDERED: BUPIVACAINE/EPINEPHRINE 0.25% 1:200,000 30 ML VIAL ONE (07:01)
[2019-12-01] MEDS ORDERED: HYDROmorphone INJ 2 MG/ML SYR/VIAL ONE (07:16)
--- NOTE | 2019-12-01 07:29 | History & Physical Bridge Note ---
Date of Service December 01, 2019 History & Physical Bridge Note I have examined the patient, reviewed the History & Physical and in the interval since the performance of the History & Physical I have noted the following changes of clinical significance: no changes noted
--- NOTE | 2019-12-01 07:30 | History & Physical Report ---
Date of Service December 01, 2019 Assessment & Plan (1) Lumbar disc herniation with radiculopathy: L3-L4 decompression fusion Present on Admission?: Yes History of Present Illness Chief Complaint: Back and left leg pain Primary Care Provider: Edward Madera, III, SERGEY This is a 54-year-old male presents with worsening back and leg pain with evidence of neurologic decline subsequently is here for surgical intervention. Allergies Allergy/AdvReac Type Severity Reaction Status Date / Time No Known Drug Allergies Allergy Unknown Verified 12/01/19 06:38 Home Medications Home Medications Medication Instructions Recorded Confirmed Type aspirin [Aspirin Childrens] 81 mg PO QPM 04/27/18 12/01/19 History multivitamin 1 tab PO HS tab 12/31/18 12/01/19 History omega 8-nsn-gdz-fish oil 1,000 mg 1 cap PO HS cap 12/31/18 12/01/19 History (120 mg-180 mg) capsule trazodone 50 mg tablet 50 mg PO HS PRN #30 tab 05/31/19 12/01/19 Rx albuterol sulfate 90 mcg/actuation 2 puffs INH Q6H PRN #6.7 gm 07/01/19 12/01/19 Rx aerosol inhaler atorvastatin 10 mg tablet 10 mg PO QPM #90 tab 07/18/19 12/01/19 Rx hydrocodone-acetaminophen 1 - 2 tab PO Q6H PRN #16 tab 11/02/19 12/01/19 Rx lisinopril 10 mg PO HS 11/25/19 12/01/19 History metoprolol succinate 50 mg PO HS 11/25/19 12/01/19 History Past Med/Surg History Medical History Hyperlipidemia Hypertension PFO (patent foramen ovale) per 2018 ECHO, hx TIA 2018- on ASA Pulmonary embolism 2016- previously on Xarelto/since discontinued Seizure intermittent as a child, no seizures since age 5 Sleep apnea hx ("no longer has" after tonsillectomy) Transient ischemic attack (TIA) 06/2017 Surgical History History of colonoscopy History of tonsillectomy History of tooth extraction Hx of vasectomy Family History Father Dementia Hypertension Stomach cancer Arthritis Gallbladder disease Kidney stones History of thyroid surgery Gastric ulcer Grandfather Gastric ulcer Stroke Mother Hypertension Sister Asthma Hypertension Brother Non-Hodgkin lymphoma Hypokalemia Grandmother Osteoporosis Grandmother Cancer Dementia Grandfather Myocardial infarction Denies family history of Ovarian cancer Prostate cancer Breast cancer Colorectal cancer Social History Preferred Language: Liberian Communication Ability: Effective Visual Impairment: No Limitations Hearing Ability: Normal Home Visits Nurse Required: No Beliefs That Will Affect Care: None marital status: Current Living Situation: Spouse current occupational status: employed current occupation: [employer] Other Information That Helps Us Care for You: No Feels Safe at Home: Yes Safety Concerns: Feels Safe At This Time Smoking Status: Never smoker Do You Dip or Chew Tobacco: No ; Second Hand Exposure: No ; Tobacco Cessation Education Requested by Patient: No Hx Alcohol Use: No Hx Substance Use: No Childhood Exposure to Second-Hand Smoke: No caffeine: Yes (soda) during the past year weight has: remained stable Dental Care, Regularly: Yes Physical Activity Frequency: Does not Exercise Seatbelt Use: always Sunscreen Use: No Physical Exam Physical Exam: Patient is alert and oriented with weakness to the left quad. Heart regular rhythm. Lungs clear to auscultation. Results & Data Vital Signs (Past 12 Hours) Vital Signs Temp Pulse Resp BP Pulse Ox 12/01/19 06:34 36.7 C 53 L 18 161/89 H 99
[2019-12-01] MEDS ORDERED: ONDANSETRON INJ 2 MG/ML 2 ML VIAL IV PRN ×2 (07:53→11:15)
[2019-12-01] MEDS ORDERED: HYDROmorphone INJ 2 MG/ML SYR/VIAL IV PRN (07:53)
[2019-12-01] MEDS ORDERED: fentaNYL citrate 100 MCG/2 ML VIAL IV PRN (07:53)
[2019-12-01] MEDS ORDERED: ePHEDrine sulfate 50 MG/ML AMP IV PRN (07:53)
[2019-12-01] MEDS ORDERED: ATROPINE SULFATE 0.1 MG/ML 10ML SYR IV PRN (07:53)
[2019-12-01] MEDS ORDERED: NEOSTIGMINE METHYLSULFATE 1 MG/ML 10ML VIAL ONE (08:24)
[2019-12-01] MEDS ORDERED: DEXAMETHASONE SOD INJ 4 MG/ML VIAL ONE (08:24)
[2019-12-01] MEDS ORDERED: GLYCOPYRROLATE 0.2 MG/ML VIAL ONE (08:24)
[2019-12-01] MEDS ORDERED: ONDANSETRON INJ 2 MG/ML 2 ML VIAL ONE (08:24)
[2019-12-01] MEDS ORDERED: PHENYLEPHRINE 100MCG/ML 5ML SYR ONE (08:37)
[2019-12-01] MEDS ORDERED: FLOSEAL HEMOSTATIC MATRIX 10ML TOP ONE (09:13)
--- NOTE | 2019-12-01 09:28 | Operative Report ---
Post Operative Report Pre & Post Diagnosis Operation Date: 12/01/19 07:45 Pre-Op Diagnosis: Lumbar disc herniation with radiculopathy Post-Op Diagnosis: Lumbar disc herniation with radiculopathy I identified the patient and participated in the time-out.: Yes Procedure Operation Date: 12/01/19 07:45 Actual Procedures #1 lumbar decompression with bilateral medial facetectomies and foraminotomies L2-3 L3-4. #2 posterior spinal fusion L3-4. #3 placement posterior instrumentation L3-4 per #4 interbody fusion L3-4 per #5 placed a peek cage 13 x 26 mm at L3-4. #6 placement of locally harvested morselized autograft in the posterior lateral gutters. #7 placement of infuse collagen sponge, master graft in the posterior gutters and ostial amp interbody space. Surgeon Arnav Huynh DO Heat Plant Specialist Laureen Meyer Estimated Blood Loss 150 Findings Consistent with Post-Op Diagnosis Specimens None Indications 84-year-old male who presents with marked decline in status secondary to massive disc herniation. Subsequently is here for surgical invention. Description of Procedure Patient was met with identified informed consent obtained. Patient was then taken to the operative suite underwent intubation and placed in a prone position on top of the Ethan table on top of the Chris frame. All bony prominences well-padded eyes inspected to ensure no external pressure placed upon the. This point the lumbar spine was prepped and draped in normal sterile fashion. Sharp dissection with the assistance of Bovie cautery was performed down to and exposing the lamina and transverse processes of L3 and L4. From caudal to cephalad fashion complete laminectomy of L3 partial laminectomy of L2 was performed including medial facetectomies and foraminotomies. This included identification of a massive discrimination had migrated from L3-4 cephalad posterior to the L2 vertebral body. I removed his fragments in their entirety. As well as all far lateral disc rotation L3-4 level foramina on the left. Pedicle screws in place in L3 and L4 bilaterally with assistance of fluoroscopy and appropriately sized bethany placed. Believe a transforaminal portion left complete discectomy was performed endplates curetted to subcortical bleeding bone and a 13 x 26 mm peek cage filled with osteo-bone graft tapped in position. The rods then locked in final position bilaterally. The transverse processes of L3 and L4 were burred to subcortical bleeding bone. Infuse collagen sponge, master graft was placed in the posterior gutters. 15 round HEAVENLY drain inserted. Incision was then closed with 1 Vicryl in the fascia 2-0 Vicryl subcutaneously and 4 Monocryl for final skin closure. Steri-Strip sterile dressings placed. Patient waken taken PACU stable addition. Please note spinal cord monitoring was utilized that the procedure no changes noted. Lastly Laureen Meyer was present at the entire procedure involved in patient positioning complex portions of the surgery and final skin closure. I attest to the content of the Intraoperative Record and any orders documented therein. Any exceptions are noted below.
--- NOTE | 2019-12-01 09:36 | Fluoroscopy Report ---
FL lumbar spine 2-3V CLINICAL HISTORY: L3-4 DECOMPRESSION/FUSION/INTERBODY COMPARISON STUDY: X-ray study dated 11/02/2019 FLUOROSCOPY TIME: 16 seconds. NUMBER OF FLUOROSCOPIC IMAGES: 2 FINDINGS: There are postsurgical changes of an L3-4 discectomy and interbody fusion with posterior pe dicle screw fixation. IMPRESSION: Postsurgical changes of an L3-4 spinal decompression and fusion ACT 112: Negative or not required by law. Electronically signed by: Stanley Ely M.D. 12/01/2019 9:35 AM
--- NOTE | 2019-12-01 10:39 | Anesthesiology Progress Note ---
Date of Service December 01, 2019 Anesthesia Post Procedure Vital Signs Vital Signs: Temp Pulse Pulse Resp BP BP Pulse Ox 12/01/19 10:30 36.4 C L 55 L 13 123/80 100 12/01/19 10:20 61 12 120/70 100 12/01/19 10:10 61 16 132/83 100 12/01/19 10:00 66 16 136/81 100 12/01/19 09:50 70 16 136/77 100 12/01/19 09:43 36.4 C L 67 15 125/65 100 12/01/19 06:34 36.7 C 53 L 18 161/89 H 99 Pain Intensity Back: Pain Intensity: 2 Transfer of Care Handoff Completed per policy Notes Mental Status: alert / awake / arousable and participated in evaluation Patient Amnestic to Procedure: Yes Nausea / Vomiting: adequately controlled Pain: adequately controlled Airway Patency, RR, SpO2: stable & adequate BP & HR: stable & adequate Hydration State: stable & adequate Anesthetic Complications: no major complications apparent and Pt Satisfied with anesthetic care Notes: neurologically intact without any notable deficits
[2019-12-01] MEDS ORDERED: ONDANSETRON 4 MG OD TAB PO PRN (11:15)
[2019-12-01] MEDS ORDERED: FAMOTIDINE 20 MG TAB PO PRN (11:15)
[2019-12-01] MEDS ORDERED: ALBUTEROL HFA 8 GM INHALER INH PRN (11:15)
[2019-12-01] MEDS ORDERED: NALOXONE HCL 0.4 MG/1 ML VIAL/CARP IV PRN (11:15)
[2019-12-01] MEDS ORDERED: TRAMADOL HCL 50 MG TABLET PO PRN (11:15)
[2019-12-01] MEDS ORDERED: LORazepam 0.5 MG/1 ML VIAL IV PRN (11:15)
[2019-12-01] MEDS ORDERED: LORazepam 0.5 MG TAB PO PRN (11:15)
[2019-12-01] MEDS ORDERED: bisacodyL 10 MG SUPP PR PRN (11:15)
[2019-12-01] MEDS ORDERED: MAGNESIUM HYDROXIDE SUSP 30 ML UDC PO PRN (11:15)
[2019-12-01] MEDS ORDERED: TRAZODONE HCL 50 MG TAB PO PRN (11:15)
[2019-12-01] MEDS ORDERED: ACETAMINOPHEN 1,000 MG/100 ML VIAL IV PRN (11:15)
[2019-12-01] MEDS ORDERED: METOCLOPRAMIDE HCL INJ 5 MG/ML 2 ML VIAL IV PRN (11:15)
[2019-12-01] MEDS ORDERED: PROMETHAZINE HCL 12.5 MG in SODIUM CHLORIDE 0.9% 50 ML IV PRN (11:15)
[2019-12-01] MEDS ORDERED: ALUMINUM/MAGNESIUM SUSP 30 ML UDC PO PRN (11:15)
[2019-12-01] MEDS ORDERED: HYDROmorphone INJ 1 MG/ML SYRINGE IV PRN (11:15)
[2019-12-01] MEDS ORDERED: ACETAMINOPHEN 500 MG TAB PO PRN (11:15)
[2019-12-01] MEDS ORDERED: DO NOT ADMINISTER PNEUMOCOCCAL VACCINE PRN (11:15)
[2019-12-01] MEDS ORDERED: SOD PHOSPHATE/SOD BIPHOSPHATE ENEMA 132 ML BTL PR PRN (11:15)
[2019-12-01] MEDS ORDERED: DO NOT ADMINISTER FLU VACCINE PRN (11:15)
[2019-12-01] MEDS: LACTATED RINGER'S 1,000 ML IV SCH ×2 (11:24→22:25)
[2019-12-01] MEDS: KETOROLAC 30 MG/ML VIAL IV SCH ×3 (11:38→23:29)
[2019-12-01] MEDS: HYDROmorphone INJ 0.5 MG/0.5 ML SYR IV PRN ×3 (11:51→22:39)
[2019-12-01] MEDS: OXYCODONE HCL IR 5 MG TAB (IMMEDIATE RELEASE) PO PRN (14:57)
[2019-12-01] MEDS: CEFAZOLIN 2000MG 2,000 MG/15 ML SYR IV SCH ×2 (15:53→23:28)
[2019-12-01] MEDS: lisinopriL 10 MG TAB PO SCH (20:01)
[2019-12-01] MEDS: DOCUSATE SODIUM/SENNA 50/8.6MG TAB PO SCH (20:01)
[2019-12-01] MEDS: MULTIVITAMIN TAB PO SCH (20:01)
[2019-12-01] MEDS: ATORVASTATIN 10 MG TAB PO SCH (20:02)
[2019-12-01] MEDS: METOPROLOL SUCC 50MG EXT REL TAB PO SCH (20:02)
[2019-12-01] MEDS: ASPIRIN 81 MG CHEW PO SCH (20:02)
[2019-12-02] MEDS: OXYCODONE HCL IR 5 MG TAB (IMMEDIATE RELEASE) PO PRN ×4 (03:54→22:45)
[2019-12-02] MEDS: POLYETHYLENE (MIRALAX) 17 GM PACK PO SCH ×4 (05:29→23:48)
[2019-12-02] MEDS: KETOROLAC 30 MG/ML VIAL IV SCH (05:30)
[2019-12-02 06:26] LABS: Basophils # (auto) 0.02 K/uL (0-0.2); Basophils % (auto) 0.1 %; Eosinophils # (auto) 0.01 K/uL (0-0.5); Eosinophils % (auto) 0.1 %; Hematocrit (blood only) 35.4 % (42-52); Hemoglobin 12.1 g/dL (14.0-18.0); Immature Granulocytes # (auto) 0.05 K/uL (0.00-0.02); Immature Granulocytes % (auto) 0.3 %; Lymphocytes # (auto) 2.57 K/uL (1.2-3.4); Lymphocytes % (auto) 15.7 %; Mean Corpuscular Hemoglobin 30.8 pg (25-34); Mean Corpuscular Hgb Conc 34.2 g/dL (32-36); Mean Corpuscular Volume 90.1 fL (80-100); Mean Platelet Volume 9.7 fL (7.4-10.4); Monocytes # (auto) 1.66 K/uL (0.11-0.59); Monocytes % (auto) 10.2 %; Neutrophils # (auto) 12.01 K/uL (1.4-6.5); Neutrophils % (auto) 73.6 %; Platelet Count 271 K/uL (130-400); RDW Standard Deviation 43.1 fL (36.4-46.3); Red Blood Count 3.93 M/uL (4.7-6.1); White Blood Count 16.32 K/uL (4.8-10.8)
[2019-12-02 06:53] LABS: BUN Creatinine Ratio 20.3 (10-20); Calcium 8.4 mg/dl (8.5-10.1); Creatinine Clr Calc Pharmacy 71.4 ml/min; Est GFR (African American) 78.7; Est GFR (Non-African American) 67.9
--- NOTE | 2019-12-02 07:45 | Anesthesiology Progress Note ---
Date of Service December 02, 2019 Anesthesia Post Procedure Vital Signs Vital Signs: Temp Pulse Pulse Pulse Resp BP Pulse Ox 12/02/19 07:37 36.5 C 56 L 16 126/74 97 12/02/19 03:43 36.7 C 64 14 109/56 L 97 12/01/19 23:31 36.7 C 56 L 15 144/75 H 96 12/01/19 19:56 54 L 114/70 12/01/19 19:03 36.7 C 73 17 136/78 94 12/01/19 13:51 83 16 133/82 97 12/01/19 12:48 64 14 122/75 96 12/01/19 11:50 65 14 134/77 95 12/01/19 11:16 36.4 C L 14 119/74 96 12/01/19 10:40 54 L 13 124/68 96 12/01/19 10:30 36.4 C L 55 L 13 123/80 100 12/01/19 10:20 61 12 120/70 100 12/01/19 10:10 61 16 132/83 100 12/01/19 10:00 66 16 136/81 100 12/01/19 09:50 70 16 136/77 100 12/01/19 09:43 36.4 C L 67 15 125/65 100 Pain Intensity Back: Pain Intensity: 4 Notes Mental Status: alert / awake / arousable and participated in evaluation Patient Amnestic to Procedure: Yes Nausea / Vomiting: adequately controlled Pain: adequately controlled Airway Patency, RR, SpO2: stable & adequate BP & HR: stable & adequate Hydration State: stable & adequate Anesthetic Complications: no major complications apparent
--- NOTE | 2019-12-02 08:41 | Orthopedic Progress Note ---
Date of Service December 02, 2019 Assessment & Plan (1) Lumbar disc herniation with radiculopathy: Patient is doing well postop 1. We will continue GI DVT prophylaxis. We will continue with pain control measures. Will use ice to the affected area as well. He will likely be with us for 2 to 3 days. We will evaluate him tomorrow and see how he is doing. Admission and Anticipated Discharge Date Admission Date: December 01, 2019 Subjective Patient seen bedside postoperative day #1. Overall he states is doing well. He has some discomfort in the back itself but nothing going down the legs at this point his pain is well controlled. He denies any other numbness, tingling, paresthesias. Physical Exam Physical Exam: On exam he is alert and oriented. His abdomen soft nontender. His strength and sensation are both intact his dressing is clean dry and intact his HEAVENLY drain is holding suction and his placed out 15 cc on the last shift. His calves are supple and nontender. Results & Data ([facility]) Vital Signs (Past 12 Hours) Vital Signs Temp Pulse Pulse Resp BP Pulse Ox 12/02/19 07:37 36.5 C 56 L 16 126/74 97 12/02/19 03:43 36.7 C 64 14 109/56 L 97 12/01/19 23:31 36.7 C 56 L 15 144/75 H 96
[2019-12-02] MEDS: HYDROmorphone INJ 0.5 MG/0.5 ML SYR IV PRN ×2 (11:57→19:48)
[2019-12-02] MEDS: METOPROLOL SUCC 50MG EXT REL TAB PO SCH (20:22)
[2019-12-02] MEDS: lisinopriL 10 MG TAB PO SCH (20:22)
[2019-12-02] MEDS: ASPIRIN 81 MG CHEW PO SCH (20:22)
[2019-12-02] MEDS: DOCUSATE SODIUM/SENNA 50/8.6MG TAB PO SCH (20:22)
[2019-12-02] MEDS: MULTIVITAMIN TAB PO SCH (20:22)
[2019-12-02] MEDS: ATORVASTATIN 10 MG TAB PO SCH (20:22)
[2019-12-03] MEDS: HYDROmorphone INJ 0.5 MG/0.5 ML SYR IV PRN (02:35)
[2019-12-03] MEDS: OXYCODONE HCL IR 5 MG TAB (IMMEDIATE RELEASE) PO PRN ×2 (05:34→09:50)
[2019-12-03] MEDS: POLYETHYLENE (MIRALAX) 17 GM PACK PO SCH (05:34)
[2019-12-03] MEDS ORDERED: SODIUM CHLORIDE 0.65% NA SOLN 45 ML (OCEAN) ONE (05:38)
--- NOTE | 2019-12-03 09:49 | Discharge Summary ---
Date of Service December 03, 2019 Admission HPI Per Admitting Provider This is a 54-year-old male presents with worsening back and leg pain with evidence of neurologic decline subsequently is here for surgical intervention. Principal Diagnosis Herniated nucleus pulposus L3-4 with radiculopathy Discharge Data Allergies Allergy/AdvReac Type Severity Reaction Status Date / Time No Known Drug Allergies Allergy Unknown Verified 12/01/19 06:38 Consultations 12/01/19 11:15 Consult Case Management - Discharge Planning Routine Procedures Performed Operation Date: 12/01/19 07:45 Actual Procedures p L3-L4 Decompression and Fusion with Interbody Cage, Spinal Cord Monitoring(Not Applicable) - Arnav Huynh DO Ordered Studies 12/01/19 07:45 FL fluoroscopy <1hr Routine FL lumbar spine 2-3V Routine Hospital Course (1) Lumbar disc herniation with radiculopathy: Patient with lumbar decompression fusion tolerated this well second orthopedic for postoperative. Postop day 1 his leg was in pain was improving strength improving ambulating well progressed to postop day 2 HEAVENLY drain decreasing probably. Excellent strength testing. Subsequently discharged home. Discharge orders and instructions from the chart for further view. Suppressed. Total Time Total Time Spent Total Time Spent (In Minutes): 20 minutes Discharge Plan Discharge Items Patient Disposition: Home - Self-Care Reason For Visit: Other Intervertebral Disc Degeneration, Lumbar Reg Discharge Diagnosis: Herniated this orthosis L3-4 Activity: As commented below Non-emergency contact: Primary Care Provider Call non-emergency contact if: you have any medication questions Follow-up/Referrals: Edward Madera III, CRNP [Primary Care Provider] - Diet: Regular Addtl Attending Provider Instructions: ACTIVITY RECOMMENDATIONS: SELF CARE INSTRUCTIONS AFTER THORACIC/LUMBAR FUSIONS 1. You may walk to your tolerance. It is good exercise for your legs and back. Expect some back and intermittent leg aches and pains. 2. You may perform "counter-top" level activities (make a sandwich, evan with a project, etc.). 3. No bending or lifting of more than 10 pounds or back twisting of any nature (roll like a log when turning in bed). 4. You may ride in a car for 20-30 minutes at a time. No driving until after your first visit with your doctor. 5. Frequent changes of position and restricting sitting to 30 minutes at a time will help limit the amount of back spasms and stiffness you may experience. 6. You may discontinue the use of ambulatory aids (cane, crutches, etc.) once your strength and confidence allow. 7. You may system planning engineer the shower and let water strike your incision when you arrive home at least once daily. Do not take a tub bath, sit in a hot tub or go into a swimming pool until after your first recheck in the office. SPECIAL CARE INSTRUCTIONS: VERY IMPORTANT TO READ AND REVIEW A. Your surgical incision has been closed with a cosmetic suture under the skin that will dissolve in about 6 weeks. In 14 days, you can use a pair of clean scissors and cut the suture that is left outside of the skin at the ends of your incision. 1. The small skin tapes can be removed 7 days after surgery if they have not fallen off by that point. 2. You may keep the wound open to air as much as possible to promote healing after post-op day number 5 unless told otherwise by your doctor. 3. If you think the wound looks like it is becoming infected (redness or worsening drainage) and/or you are experiencing fever, chill or worsening back pain and muscle spasms, contact the office so that we may evaluate you as soon as possible. B. Complications are uncommon, but please contact us if you have any signs or symptoms of: 1. wound infection (fever higher than 102.5 degrees F, redness, separation of wound, drainage, or increasing pain from the incision) 2. blood clots in legs (pain, swelling, redness and warmth in legs) 3. urinary tract infection (fever higher than 102.5 degrees F, burning upon urination or increased frequency of urination) 4. nerve problems (inability to walk on your toes or heels, numbness, loss of bowel or bladder control) 5. any other symptoms that concern you C. Please call the office at if you have any concerns or questions about your operation or recovery. D. No smoking! Smoking drastically decreases the chance of a solid fusion. E. Do not take any anti-inflammatory medications (Indocin, Advil, Motrin, Aspirin, Naprosyn, etc.) as these may inhibit the chance of a solid fusion. Tylenol is okay to take for pain. MANAGING PAIN AFTER SPINAL SURGERY 1. Narcotic medication is intended for short-term use and will be provided for surgical pain. Surgical pain usually lasts for a period of 4-6 weeks. Narcotic medication includes Percocet, Vicodin, Darvocet, Tylenol #3 or Lortab. 2. Longer-term pain is more appropriately treated with non-narcotic medication such as Tylenol ES. 3. Muscle spasm is not appropriately treated with narcotics. Muscle relaxers such as Soma, Flexeril or Skelaxin can be used along with Tylenol ES. 4. Remember that we all live with some "aches and pains". This is not unusual or uncommon after an injury or as we get older. a. Back pain is expected and may include muscle spasms for 4 to 6 weeks after surgery. The pain should gradually improve. If the pain worsens for no apparent reason, please contact the office. b. Intermittent leg pain may also be experienced and should not be concerned about unless it worsens for no apparent reason. If so, please contact the office. 5. We will provide appropriate medication within the normal guidelines of their prescribed use. We will also be very cautious and aware of potential abuse and extended duration of patients' medication needs. a. Pain medications are for your comfort and to assist with sleep and rest so that the tissue can heal. They are not provided in order to return to normal activity and should not be used through the day. To do so or worsening pain at night can result from ongoing tissue damage and development of tolerance to the prescribed medicine. 6. Please allow 2-3 days to process refills. Prescriptions will not be mailed but must be picked up at the office. FOLLOW UP VISIT: Keep your scheduled follow-up appointment. Any questions, please call the office at . Pending Studies at Discharge: No Stand-Alone Forms: My [facility] Smart Pipe, Smoking Cessation Medications and DC Order Prescriptions: New oxycodone 5 mg tablet 5 mg PO Q6H PRN (Reason: pain, severe) Qty: 20 RF: 0 tramadol 50 mg tablet 50 mg PO Q6H PRN (Reason: pain, moderate) Qty: 20 RF: 0 Continued trazodone 50 mg tablet 50 mg PO HS PRN (Reason: insomnia) Qty: 30 RF: 5 albuterol sulfate 90 mcg/actuation HFA aerosol inhaler 2 puffs INH Q6H PRN (Reason: shortness of breath or wheezing) Qty: 6.7 RF: 0 atorvastatin 10 mg tablet 10 mg PO QPM Qty: 90 RF: 1 hydrocodone-acetaminophen 5-325 mg tablet 1 - 2 tab PO Q6H PRN (Reason: pain) Qty: 16 RF: 0 aspirin [Aspirin Childrens] 81 mg Tablet,Chewable 81 mg PO QPM RF: 0 multivitamin tablet 1 tab PO HS RF: 0 omega 0-zpp-nwu-fish oil [Fish Oil] 1,000 mg (120 mg-180 mg) capsule 1 cap PO HS RF: 0 metoprolol succinate 50 mg tablet extended release 24 hr 50 mg PO HS RF: 0 lisinopril 10 mg tablet 10 mg PO HS RF: 0 Discharge Orders: Discharge Order (Routine); Ordered 12/03/19 Ordered By: Arnav Huynh Admission Data Admit Date/Time: 12/01/19 10:57 Attending Provider: Arnav Huynh Admit Provider: Arnav Huynh Primary Care Provider: Edward Madera III
== END 2019-12-03 12:40 | disposition home or self-care (01) | DRG 454 ==
LOC: ASU 06:18 → 3E 10:57